=== PATIENT | male | born 1980 | race Caucasian/White ===

== ENCOUNTER 2025-03-21 08:45 | Emergency (ER) | payer BC, SELFPAY ==
[2025-03-21 08:46] VITALS: BP 146/89; PULSE 83; RESP 16; TEMP 36.7; O2SAT 97; BMI 24.7
--- NOTE | 2025-03-21 08:53 | EDS_ITS ---
HPI History of Present Illness Chief Complaint: Back Informant: patient Onset/Context/Timing Onset: Today Context: Sudden Onset Timing: Continuous Quality: Sharp Location: Right posterior thoracic area Worsened by: Deep breathing Relieved by: Nothing Narrative Narrative: Patient presents with right-sided back pain that began this morning. Patient states it was there when he woke up. Patient describes the pain as sharp. Patient states the pain is over the right posterior chest. Patient states his pain radiates into his right shoulder. Patient states it is worse with deep breathing. Patient states nothing makes it better. Patient states it hurts when he takes of breath. Patient denies any cough or palpitations. Patient admits to an episode of nausea and vomiting. Patient denies any headaches. [facility] Medical History Marijuana smoker Medical History no medical history Home Medications ?Medication ?Instructions ?Recorded ?Last Taken ?Type naproxen 500 mg tablet (Naprosyn) 500 mg PO BID PRN pa in #20 tabs 03/21/25 Unknown Rx Allergy/AdvReac Type Severity Reaction Status Date / Time No Known Allergies Allergy Verified 03/21/25 08:48 Surgical History H/O shoulder surgery Surgical History no surgical history Social History (Updated 03/21/25 @ 08:[address] Danial Phipps DO) Smoking Status: Never smoker substance use type: marijuana ROS ROS ED Constitutional Constitutional ED: Denies chills or fever(s) Eyes Eyes: Denies blurry vision or change in vision ENT ENT ED: Denies rhinorrhea or sore throat Cardiovascular Cardiovascular: Denies chest pain or palpitations Respiratory/Chest Respiratory/Chest: Reports dyspnea; Denies cough Gastrointestinal Gastrointestinal: Reports nausea and vomiting Genitourinary Genitourinary ED: Denies dysuria or hematuria Musculoskeletal Musculoskeletal: Reports back pain; Denies neck pain Integumentary Denies abscess or rash Neurologic Neurologic: Denies headache(s) or weakness Allergic/Immunologic Allergic/Immunologic ED: Denies mouth swelling or urticaria EXAM Physical Exam Const Vital Signs: 03/21/25 08:46 03/21/25 10:46 03/21/25 12:00 Temperature 98.0 F Temperature Source Oral Pulse Rate 83 78 70 Respiratory Rate 16 Blood Pressure 146/89 H 126/70 H 126/77 H Blood Pressure Mean 108 88 93 Pulse Ox 97 96 98 Oxygen Delivery Method Room Air Positive well nourished and well developed Constitutional Narrative: BMI is 24.7. General Appearance ED: well developed and NAD HEENT Reports moist mucous membranes Neck supple and no JVD Resp Effort and Inspection: pain with movement Auscultation: diminished lung sounds bilateral Cardio regular rate and regular rhythm GI non-tender and non-distended Palpation: soft Back/Spine Back/Spine Narrative: There is tenderness over the right lower posterior ribs. There is no bony crepitance or step-off. There is no subcutaneous emphysema noted. Extremity normal to inspection General Extremety ED: Negative for edema or tenderness General Extremity: Negative for edema Neuro oriented x3 and CN's II-XII intact bilaterally Sensorium / Orientation: alert Motor Exam: strength 5/5 throughout Psych mental status grossly normal MDM MDM MDM Narrative Medical decision making narrative: Differential diagnosis includes thoracic strain, pneumothorax, cardiac dysrhythmia, cardiac ischemia, pneumonia, bronchitis, aortic dissection, pulmonary embolism, dehydration, and electrolyte abnormality. EKG will be obtained to assess for cardiac dysrhythmia and cardiac ischemia. Chest x-ray will be obtained to assess for pneumonia, bronchitis, pneumothorax. CBC will be obtained to assess for leukocytosis and anemia. Basic metabolic profile will be obtained to assess for electrolyte abnormality and renal function. High- sensitivity troponin will be obtained to assess for cardiac ischemia. D-dimer will be obtained to assess for pulmonary embolism and aortic dissection. History & Record Review Additional record(s) reviewed:: Prior ED visit Lab Data Attestation: I reviewed the patient's lab results. Lab results narrative: CBC was reviewed. There is a mild leukocytosis of 17.8. The remainder is within normal limits. Basic metabolic profile was reviewed. Potassium was mildly elevated at 5.6. BUN was slightly elevated at 22 and creatinine was 1.25. There are no prior labs available for comparison. Initial high- sensitivity troponin was reviewed and was normal at 11. 2-hour repeat high- sensitivity troponin was reviewed and was 17. Repeat basic metabolic profile was reviewed. CO2 was improved to 18.1 and potassium was 4.7. Labs: Laboratory Results - last 24 hr 03/21/25 03/21/25 03/21/25 09:10 11:05 11:57 WBC 17.8 H RBC 5.17 Hgb 14.2 Hct 43.9 MCV 84.9 MCH 27.5 MCHC 32.3 RDW Std Deviation 42.0 RDW Coeff of [place] 13.6 Plt Count 288 MPV 10.7 Immature Gran % (Auto) 0.800 Neut % (Auto) 75.7 H Lymph % (Auto) 4.8 L [place] % (Auto) 6.4 Eos % (Auto) 12.1 H Baso % (Auto) 0.2 Absolute Neuts (auto) 13.4 H Absolute Lymphs (auto) 0.86 Nucleated RBC % 0 Differential Comment COMMENT D-Dimer Quant (PE/DVT) 0.40 Sodium 139 136 Potassium 5.6 H 4.7 Chloride 102 105 Carbon Dioxide 14.6 L 18.1 L Anion Gap 23 H 13 BUN 22 H 23 H Creatinine 1.25 H 0.90 Estim Creat Clear Calc 76.20 105.83 Est GFR (MDRD) Non-Af 73 108 BUN/Creatinine Ratio 17.9 25.8 H Glucose 151 H 110 H Calcium 8.7 8.4 Troponin T High Sens 11 Troponin T Hi Sens 2 Hr 17 Radiography Chest X-Ray - ED: 2 View, Read by ED Physician, Read by Radiologist and No Acute Disease Diagnostic Testing: Clinical Impression(s) from Imaging Studies Chest X-Ray 03/21/25 09:02 IMPRESSION: Lungs appear clear of acute disease. No pleural effusion or pneumothorax is noted. The cardiomediastinal silhouette is within the normal range. Minimal degenerative changes of the spine are seen. No fracture, subluxation, or paraspinous line widening is noted. No evidence of acute disease. Reading Location: [facility] [place] and lateral chest x-ray was obtained. There are 2 views. On my independent interpretation, lung marsh are clear. There is normal cardiac silhouette. Bony thorax is normal. There is no acute process noted. Radiologist also interpreted the x-ray and agrees. EKG Initial EKG: Attestation: I personally reviewed and interpreted this EKG as follows: Interpretation: Sinus Rhythm (83) and No Acute Injury Pattern Comments: EKG was obtained. On my independent interpretation, it showed a normal sinus rhythm with a rate of 83. HI interval, QRS interval, and QTc intervals were all normal. [place] was normal. There are no acute ST or T wave changes. 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 Patient is feeling better on reevaluation. Patient states his pain is worse when he moves. Patient was advised that this is most likely musculoskeletal in etiology. Patient was instructed to drink plenty of fluids. Patient was given a prescription for Naprosyn. Patient was instructed to follow-up with his primary care physician in 5 to 7 days. Patient was instructed return if worse in any way. Patient understood and was agreeable with the plan. All questions were answered. Discharge Plan Triage Chief Complaint: Back ED Provider: Danial Phipps Dx/Rx/DC Orders Clinical Impression: Strain of thoracic back region, Elevated blood pressure reading Instructions: ED Back Sprain/Strain Prescriptions: New naproxen [Naprosyn] 500 mg tablet 500 mg PO BID PRN (Reason: pain) Qty: 20 0RF Primary Care Provider: Care Physician,No Primary Referrals: Wayne Laguna MD [Med Staff - [employer] Assistant, Family Practice] - 5-7 Days Care Physician,No Primary [Primary Care Provider, Medical] Print Language: [place] Disposition Disposition: Home, Self Care
--- NOTE | 2025-03-21 09:02 | RAD_ITS ---
PROCEDURE: CHEST PA AND LATERAL 03/21/2025 REASON FOR EXAM: BACK PAIN TECHNIQUE: Procedure Code: RADCXR Modality: DX Procedure: CHEST PA AND LATERAL COMPARISON: None. RAD/Chest PA and Lateral IMPRESSION: Lungs appear clear of acute disease. No pleural effusion or pneumothorax is noted. The cardiomediastinal silhouette is within the normal range. Minimal degenerative changes of the spine are seen. No fracture, subluxation, or paraspinous line widening is noted. No evidence of acute disease. Reading Location: [place] [id number]
[2025-03-21 09:17] LABS: Hematocrit 43.9 % (40-54); Hemoglobin 14.2 g/dL (13.0-16.5); Immature Granulocytes Count 0.140 X10^3/uL (0.0-0.0); Mean Corp Hgb Conc 32.3 g/dL (32-36); Mean Corpuscular Volume 84.9 fL (80-94); Mean Platelet Vol. 10.7 fl (6.2-12.0); NRBC Flagged by Analyzer 0 % (0-5); POSITIVE DIFFERENTIAL YES; POSITIVE MORPHOLOGY YES; Platelet Count 288 K/mm3 (150-450); RBC Distribution Width CV 13.6 % (11.6-14.6); RBC Distribution Width SD 42.0 fl (35.1-43.9); Red Blood Count 5.17 M/mm3 (4.6-6.2); White Blood Count 17.8 K/mm3 (4.4-11.0)
[2025-03-21] MEDS: 0.9% Normal Saline (1000mL) 1,000 ML 1000 ML IV (09:30)
[2025-03-21 09:37] LABS: Anion Gap 23 (5-15); BUN 22 mg/dL (4-19); BUN/Creat Ratio 17.9 RATIO (10-20); Calcium,Total 8.7 mg/dL (7.6-11.0); Carbon Dioxide 14.6 mmol/L (21.0-32.0); Chloride 102 mmol/L (98-108); Estimated Creatinine Clearance 76.20 ml/min (50-250); Glucose 151 mg/dL (70-99); Potassium 5.6 mmol/L (3.3-5.1); Troponin T High Sensitivity 11 ng/L (<=22)
[2025-03-21 09:38] LABS: Differential Indicated SCAN CRITERIA MET
[2025-03-21 09:40] LABS: D-Dimer Quantitative (DVT/PE) 0.40 FEU/ug/m (0.27-0.49)
--- OUTSIDE RECORDS SUMMARY | 2025-03-21 10:31 | XMS RPT_ITS | CCD ---
Author Organization [facility] Partnership [facility] Care Team Providers Care Coating Line Worker Name Role Phone Unavailable Primary Care Provider UnavailBRYON Krishna Attending Unava FRANKLIN Zapata Attending Unavailable JOHANA LAURA Referring Unavailable JOHANA LAURA Attending Unavailable Medications Current Medications Medication Drug Class(es) Dates Sig (Normalized) Sig (Original) pantoprazole 20 mg delayed release oral tablet (4 sources) Proton Pump Inhibitor Start: 11-05-2024 End: 05-04-2025 take 1 tablet by mouth once daily before breakfast pantoprazole (Protonix) 20 MG EC tablet Take 1 tablet (20 mg) by mouth every morning (before breakfast). Do not crush, chew, or split. 90 tablet 11/05/2024 05/04/2025 Active polyethylene glycol 3350 116174 mg / potassium chloride 2970 mg / sodium bicarbonate 6740 mg / sodium chloride 5860 mg / sodium sulfate 49009 mg powder for oral solution (1 source) Osmotic Laxative Start: 11-05-2024 End: 11-06-2024 polyethylene glycol (GaviLyte-G) 236 g solution Take according to colonoscopy bowel prep instructions. 4000 mL 11/05/2024 11/06/2024 Active Completed/Discontinued Medications Medication Drug Class(es) Dates Sig (Normalized) Sig (Original) iopamidol (Isovue-370) 76 % injection 75 mL (2 sources) Start: 08-29-2024 End: 08-29-2024 take 75 mL intravenously once as needed 75 mL, IntraVENous, IMG once PRN, contrast, Starting on Tue08/29/24 at 1211, For 1 dose 1 ml ketorolac tromethamine 30 mg/ml cartridge (2 sources) Nonsteroidal Anti-inflammatory Drug, Cyclooxygenase Inhibitor Start: 08-29-2024 End: 08-29-2024 30 mg, IntraVENous, Once, On Tue08/29/24 at 0915, For 1 dose Problems Active Problems Problem Classification Problem Date Documented Da te Episodic/Chronic Abdominal pain (3 sources) Generalized abdominal pain; Translations: [Generalized abdominal pain] Onset: 5 11-05-2024 Episodic Gastrointestinal hemorrhage (3 sources) Blood-tinged feces; Translations: [Melena] Onset: 5 11-05-2024 Episodic Other gastrointestinal disorders (1 source) Abdominal bloating; Translations: [Abdominal distension (gaseous)] 11-05-2024 Episodic Other gastrointestinal disorders (2 sources) Abdominal distension (gaseous); Translations: [Abdominal distension (gaseous)] Onset: 5 Episodic Other lower respiratory disease (2 sources) Multiple nodules of lung; Translations: [Other nonspecific abnormal finding of lung field] 09-27-2024 Episodic Other nervous system disorders (2 sources) Other chronic pain; Translations: [Other chronic pain] Onset: 5 Chronic Other screening for suspected conditions (not mental disorders or infectious disease) (3 sources) Imaging of gastrointestinal tract abnormal; Translations: [Abnormal findings on diagnostic imaging of other parts of digestive tract] Onset: 5 11-05-2024 Episodic Residual codes; unclassified (1 source) H/O: gastrointestinal disease; Translations: [Personal history of other specified conditions] 11-05-2024 Episodic Residual codes; unclassified (2 sources) Personal history of other specified conditions; Translations: [Personal history of other specified conditions] Onset: 5 Episodic Sprains and strains (1 source) Sprain of anterior cruciate ligament of right knee, initial encounter; Translations: [Sprain of anterior cruciate ligament of right knee, initial encounter] Onset: 4 Episodic Past or Other Problems Problem Classification Problem Date Documented Date Episodic/Chronic Administrative/social admission (5 sources) Other problems related to medical facilities and other health care; Translations: [Other specified conditions influencing health status] Onset: 09-27-2024 08-29-2024 Episodic Noninfectious gastroenteritis (8 sources) Colitis; Translations: [Noninfective gastroenteritis and colitis, unspecified] Onset: 08-29-2024 08-29-2024 Episodic Other lower respiratory disease (2 sources) Other nonspecific abnormal finding of lung field; Translations: [Other nonspecific abnormal finding of lung field] Onset: 09-27-2024 Episodic Spondylosis; intervertebral disc disorders; other back problems (6 sources) Chronic thoracic back pain; Translations: [Pain in thoracic spine] Onset: 08-29-2024 08-29-2024 Episodic Unclassified (3 sources) Does not have primary care provider 08-29-2024 Results Test Name Value Interpretation Reference Range Facility 36on 12-25-2024 36 Multiple attempts to contact patient and has still not r/s CT Chest ordered by Dr. Fabrice Galciia. Certified letter mailed as a final attempt to assist with recommended follow up. [facility] 36on 12-17-2024 36 Attempted to contact pt so see if he got the FA paperwork or was able to sched an appt. LM to return call to navigator. [facility] 36 Patient has not read the MCM sent regarding financial assistance program. Attempt to call pt x 1. LM to call back to navigator. [facility] 36on 12-06-2024 36 Financial assistance program information mailed to patient's home address. [facility] 36on 11-30-2024 36 Canceled 12/04 appt d ue to Pt could not afford $[address] Chest[address] [facility] 37on 11-05-2024 37 --Please call office with any questions or concerns! [phone] --Schedule colonoscopy for further evaluation of the symptoms (all locations). . 06/13/25 at 8:00 am arrive at 7:[address] Dailey. Case # [id number] --A prescription for GoLytely was sent to your pharmacy. This is the bowel prep for your colonoscopy. --Obtain additional blood work and stool study for further evaluation of the symptoms. Orders given to patient. --Begin medication (Pantoprazole 20 mg daily). Do not start until after completing stool study. --Please see handout provided regarding additional information. --Follow-up with PCP, and in GI clinic in about 1 month following the above evaluation and recommendations. [facility] Office Visiton 11-05-2024 Follow-up visit [id number] Juwan Mackey 1980 M Date Provider Department Center 11/05/2024 [id number] T[facility]I [facility] G[facility] None No family history on file Level of Service:80897 [place] OFFICE/OUTPATIENT NEW MODERATE MDM 45 MINUTES Reason for Visit and Comments: New Patient [542] - Colitis Normal [facility] Progress Noteon 11-05-2024 Progress Note [facility] [place] [address] [facility] [address] Dept: [phone] Dept Loc: [phone] Visit type: New Reason for Visit: New Patient (Colitis ) Assessment and Plan Problem List Items Addressed This Visit None Visit Diagnoses Abnormal CT scan, colon - Primary Relevant Orders C-reactive protein Sedimentation rate, automated Generalized abdominal pain Relevant Orders H. pylori Stool Antigen C-reactive protein Sedimentation rate, automated History of diarrhea Relevant Orders Celiac reflex panel Bloating Relevant Orders H. pylori Stool Antigen Celiac reflex panel Hematochezia Has had stomach problems for years. Nothing worse recently except for ED which showed ?mild colitis. Thinks it might have been from food poisoning as symptoms are getting better. Usually as bloating that is postprandial. Has a history early satiety but none recently. No nausea or vomiting. Has tried eliminating processed foods with minimal relief. Has bilateral abdominal pain that radiates to the back that is post prandial. Has fluctuating BM that is loose or formed. It does not come out regularly. Has seen hematochezia when wiping. No blood in stool. Thinks it might be related to stress, as he went to [place] for vacation with fishing, and symptoms resolved. Weight is stable. Recommend colonoscopy for further evaluation. Barry ordered. Will get Celiac serology, H. Pylori stool antigen, CRP, Sed rate for further evaluation. Trial PPI. Follow up in about 6 months (around 05/07/2025) for Next scheduled follow-up. Advised patient to call office with new or worsening symptoms, questions, or concerns. Patient verbalized understanding and agreement of plan. Subjective Juwan is a 44 y.o. male who presents as a new patient. He was referred by ED regarding colitis. HPI Has had stomach problems for years. Nothing worse recently except for ED which showed ?mild colitis. Thinks it might have been from food poisoning as symptoms are getting better. Usually as bloating that is postprandial. Has a history early satiety but none recently. No nausea or vomiting. Has tried eliminating processed foods with minimal relief. Has bilateral abdominal pain that radiates to the back that is post prandial. Has fluctuating BM that is loose or formed. It does not come out regularly. Has seen hematochezia when wiping. No blood in stool. Thinks it might be related to stress, as he went to [place] for vacation with fishing, and symptoms resolved. Weight is stable. EtOH: None. Tobacco: None. NSAIDs: None. Illicit drugs: Marijuana daily. Family History of Colon Cancer: None. Prior EGD/Colonoscopy: None. Prior Abdominal Surgery: None. Review of Systems Constitutional: Negative for appetite change, chills, fatigue, fever and unexpected weight change. HENT: Negative for sore throat, trouble swallowing and voice change. Respiratory: Negative for cough, choking and shortness of breath. Cardiovascular: Negative for chest pain. Gastrointestinal: Positive for anal bleeding and diarrhea. Negative for abdominal distention, abdominal pain, blood in stool, constipation, nausea, rectal pain and vomiting. Genitourinary: Negative for difficulty urinating. Musculoskeletal: Negative for arthralgias. Skin: Negative for color change, pallor and rash. Allergic/Immunologic: Negative for environmental allergies and food allergies. Neurological: Negative for tremors and weakness. Hematological: Does not bruise/bleed easily. Psychiatric/Behavioral : Negative for confusion. Allergies[1] Current Medications[2] There are no active problems to display for this patient. Social History Tobacco Use Smoking status: Never Smokeless tobacco: Former Types: Chew Quit date: 05/16/2023 Substance Use Topics Alcohol use: Yes Alcohol/week: 1.0 standard drink of alcohol Types: 1 Shots of liquor per week Comment: [facility] Family History[3] Objective BP 123/79 Pulse 54 Temp 36.9 ?C (98.4 ?F) Ht 5' 9 (1.753 m) Wt 178 lb (80.7 kg) SpO2 97% BMI 26.29 kg/m? Physical Exam Vitals reviewed. Constitutional: General: He is not in acute distress. Appearance: Normal appearance. He is not ill-appearing. Cardiovascular: Rate and Rhythm: Normal rate and regular rhythm. Pulmonary: Effort: Pulmonary effort is normal. Breath sounds: Normal breath sounds. Abdominal: General: Bowel sounds are normal. There is no distension. Palpations: Abdomen is soft. Tenderness: There is no abdominal tenderness. There is no guarding or rebound. Neurological: General: No focal deficit present. Mental Status: He is alert and oriented to person, place, and time. Psychiatric: Mood and Affect: Mood normal. Behavior: Behavior normal. Data Reviewed and Summarized Labs: Lab Results Component Value Date WBC 7.2 (more content not included)... Normal [facility] 37on 09-27-2024 37 YOUR APPOINTMENT TOJosesito MERCEDES WAS WITH THE [facility] LUNG NODULE CLINIC, COPD CLINIC, PULMONARY AND SLEEP MEDICINE OFFICE. PLEASE CALL OUR OFFICE AT [phone] IF YOU HAVE NOT RECEIVED YOUR TEST RESULTS 7 DAYS AFTER TESTING IS COMPLETED. PLEASE REMEMBER TO REQUEST REFILLS AT YOUR OFFICE VISITS. PHONE/FAX REQUESTS REQUIRE 48-72 HOURS FOR RESPONSE. A FRIENDLY REMINDER COPAYS ARE DUE AT TIME OF SERVICE. THANK YOU. Our Patients Are Important! We want to improve and you can help. After your visit we want you to feel: Listened to, Respected and have your health care explained. You may receive a survey asking you about your visit. Please complete the survey. We will use your feedback to make improvements. COVID-19 VACCINATION INFORMATION: [facility] [phone] [email or web address] /VACCINE [facility] Central Scheduling [phone] [facility] Sleep Scheduling [phone] [facility] Office Visiton 09-27-2024 Follow-up visit [id number] Jwuan Mackey 1980 M Date Provider Department Center 09/27/2024 [id number] S, Kannan*[facility] PUL None No family history on file Level of Service:85905 [place] OFFICE/OUTPATIENT NEW LOW MDM 30 MINUTES Reason for Visit and Comments: New Patient [542] Lung Nodule [519] Normal [facility] Progress Noteon 09-27-2024 Progress Note MG, Pulmonary Critical Care Medicine [address] [place] [id number] Pulmonary Patient Visit - New 09/27/2024 Referring Physician: No primary care provider on file. Reason for Referral: Pulmonary nodules History of Present Illness Juwan Mackey is a 44 y.o. M with no significant PMH who presented for incidentally found pulmonary nodules. Stated that he recently developed abdominal and back pain prompting evaluation in the ER. Found on CT with mild colitis and multiple pulmonary nodules. Pending appointment with GI. Does not believe that he has ever completed prior chest imaging for comparison. Denied any respiratory symptoms including SOB, cough, hemoptysis, chest pain, unintentional weight loss, night sweats. Smoking history: Prior chewing tobacco quit 2022. Denied smoking. Marijuana x 20 years. 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 Sig Documenting Provider Last Dose Status No Medications to Display Social History Social History Tobacco Use Smoking status: Never Smokeless tobacco: Former Types: Chew Quit date: 05/16/2023 Substance Use Topics Alcohol use: Yes Alcohol/week: 1.0 standard drink of alcohol Types: 1 Shots of liquor per week Comment: [facility] FamilyHistory Family History[4] Review of Systems Review of Systems Constitutional: Negative. Respiratory: Negative. Cardiovascular: Negative. Gastrointestinal: Positive for abdominal pain and diarrhea. Musculoskeletal: Positive for back pain. Physical Exam Vitals: 09/27/24 0832 BP: 122/78 BP Location: Left arm Patient Position: Sitting BP Cuff Size: Adult Pulse: 73 Resp: 14 Temp: (!) 34.6 ?C (94.3 ?F) TempSrc: Temporal SpO2: 98% Weight: 177 lb (80.3 kg) Height: 5' 9.02 (1.753 m) Physical Exam Vitals reviewed. Constitutional: General: He is not in acute distress. Appearance: Normal appearance. HENT: Head: Normocephalic and atraumatic. Mouth/Throat: Mouth: Mucous membranes are moist. Pharynx: No oropharyngeal exudate. Eyes: General: No scleral icterus. Extraocular Movements: Extraocular movements intact. Cardiovascular: Rate and Rhythm: Normal rate and regular rhythm. Pulmonary: Effort: Pulmonary effort is normal. No respiratory distress. Breath sounds: Normal breath sounds. No wheezing or rales. Musculoskeletal: General: No swelling. Skin: General: Skin is warm and dry. Neurological: Mental Status: He is alert and oriented to person, place, and time. Psychiatric: Mood and Affect: Mood normal. Labs: Available studies were reviewed Radiology: Personally reviewed Chest CT 08/29/24: Impression:No large central PE. Consider VQ scan for persistent symptoms. Pulmonary nodules as described above, up to approximately 8 mm.Three month follow-up CT can be considered. See below for published guidelines. PFT's: Assessment/plan: Multiple pulmonary nodules Prior chewing tobacco Marijuana use -Chest imaging reviewed with patient including multiple pulmonary nodules and prominent right hilar lymph node. Reviewed possible etiologies for nodules including infection, inflammation, malignancy. Discussed options for further evaluation. Per Fleischner guidelines will repeat chest CT in 3 months, due on November. - Referral placed for PCP Follow up: After CT to review results Please seek immediate medical attention for any worsening or worrying new symptoms. Patient education, benefits, risks, and precautions provided. Management plan was discussed in detail and in agreement. All questions or concerns answered to satisfaction and understood. Bryon Magaña DO 9:01 AM 09/27/24 Pulmonary and Critical Care Medicine [1] Past Medical History: Diagnosis Date Pneumonia two weeks old [2] Past Surgical History: Procedure Laterality Date SHOULDER SURGERY [3] No Known Allergies [4] No family history on file. Normal [facility] 36on 09-03-2024 36 Pt appeared on [facility] e search for Lung nodules after 08/29/24 CTA Chest revealed the following: LUNGS:No definite findings to explain the patient's symptoms. Left upper lobe nodule 8.5 mm x 5.9 mm. Middle lobe nodule 6.4 mm. Left basilar nodule 8 mm. A few small nodules along the fissure. Spine: No convincing acute or occult process. Three month follow-up CT can be considered. Referral: none OSF imaging: none Pt is documented as: never smoker Additional Risk Factors: none Consider additional imaging based on risk factors/Fleischner guidelines. Patient does not have a PCP listed in chart and no previous encounters. Normal [facility] CBC W Auto Differential pane l (Bld)on 08-29-2024 Basophils (Bld) [#/Vol] 0 10*3/uL 0.0 - 0.2 10*3/uL [facility] Basophils/100 WBC (Bld) 0.3 % 0.0 - 2.0 % [facility] Eosinophils (Bld) [#/Vol] 0.1 10*3/uL 0.0 - 0.5 10*3/uL [facility] Eosinophils/100 WBC (Bld) 0.7 % 0.0 - 6.0 % [facility] Erythrocyte distribution width (RBC) [Ratio] 13.2 % 11.5 - 15.0 % [facility] Hematocrit (Bld) [Volume fraction] 45.3 % 40.0 - 52.0 % [facility] Hemoglobin (Bld) [Mass/Vol] 14.6 g/dL 13.0 - 18.0 g/dL [facility] Immature granulocytes (Bld) [#/Vol] 0 10*3/uL NINF - 0.1 10*3/uL [facility] Immature granulocytes/100 WBC (Bld) 0.3 % 0.0 - 2.0 % [facility] Interpretation and review of laboratory results Normal [facility] Lymphocytes (Bld) [#/Vol] 1.4 10*3/uL 1.0 - 4.3 10*3/uL [facility] Lymphocytes/100 WBC (Bld) 19.1 % 15.0 - 45.0 % [facility] MCH (RBC) [Entitic mass] 27.1 pg 26.0 - 34.0 pg [facility] MCHC (RBC) [Mass/Vol] 32.2 % 30.5 - 36.0 % [facility] MCV (RBC) [Entitic vol] 84 fL 77.0 - 99.0 fL [facility] Monocytes (Bld) [#/Vol] 0.8 10*3/uL 0.0 - 0.9 10*3/uL [facility] Monocytes/100 WBC (Bld) 10.5 % 5.0 - 13.0 % [facility] Neutrophils (Bld) [#/Vol] 5 10*3/uL 1.8 - 7.5 10*3/uL [facility] Neutrophils/100 WBC (Bld) 69.1 % 38.0 - 82.0 % [facility] Nucleated RBC/100 WBC (Bld) [Ratio] 0 % [facility] Platelet mean volume (Bld) [Entitic vol] 10.7 fL 9.0 - 12.7 fL [facility] Platelets (Bld) [#/Vol] 270 10*3/uL 140 - 440 10*3/uL [facility] RBC (Bld) [#/Vol] 5.39 10*6/uL 4.40 - 5.9 0 10*6/uL [facility] WBC (Bld) [#/Vol] 7.2 10*3/uL 3.6 - 10.7 10*3/uL [facility] CBC WITH AUTO DIFFERENTIALon 08-29-2024 Basophils (Bld) [#/Vol] 0.0 10*3/uL Normal 0.0-0.2 [facility] Comment on above: Performed By: #### L [id number] ####Child Support Investigator: CHARLES MATHIAS ([id number])[facility])[address] [place] [address] Basophils/100 WBC (Bld) 0.3 % Normal 0.0-2.0 [facility] Comment on above: Performed By: #### L [id number] ####Child Support Investigator: CHARLES MATHIAS ([id number])[facility])[address] [place] [address] Eosinophils (Bld) [#/Vol] 0.1 10*3/uL Normal 0.0-0.5 [facility] Comment on above: Performed By: #### L [id number] ####Child Support Investigator: CHARLES MATHIAS ([id number])[facility])[address] [place] [address] Eosinophils/100 WBC (Bld) 0.7 % Normal 0.0-6.0 [facility] Comment on above: Performed By: #### L [id number] ####Child Support Investigator: CHARLES MATHIAS ([id number])[address] Erythrocyte distribution width (RBC) [Ratio] 13.2 % Normal 11.5-15.0 [facility] Comment on above: Performed By: #### L [id number] ####Child Support Investigator: CHARLES [id number])[facility])[address] [place] [address] Hematocrit (Bld) [Volume fraction] 45.3 % Normal 40.0-52.0 [facility] Comment on above: Performed By: #### L [id number] ####Child Support Investigator: CHARLES MATHIAS ([id number])[facility])[address] [place] [address] Hemoglobin (Bld) [Mass/Vol] 14.6 g/dL Normal 13.0-18.0 [facility] Comment on above: Performed By: #### L [id number] ####Child Support Investigator: CHARLES MATHIAS ([id number])[facility])[address] [place] [address] IMMATURE GRANS % 0.3 % Normal 0.0-2.0 [facility] Comment on above: Performed By: #### L [id number] ####Child Support Investigator: CHARLES MATHIAS ([id number])[facility])[address] [place] [address] IMMATURE GRANS ABSOLUTE 0.0 10*3/uL Normal <0.1 [facility] Comment on above: Performed By: #### L [id number] ####Child Support Investigator: CHARLES MATHIAS ([id number])[facility])[address] [place] [address] Lymphocytes (Bld) [#/Vol] 1.4 10*3/uL Normal 1.0-4.3 [facility] Comment on above: Performed By: #### L [id number] ####Child Support Investigator: CHARLES MATHIAS ([id number])[facility])[address] [place] [address] Lymphocytes/100 WBC (Bld) 19.1 % Normal 15.0-45.0 [facility] Comment on above: Performed By: #### L [id number] ####Child Support Investigator: CHARLES MATHIAS ([id number])[facility])[address] [place] [address] MCH (RBC) [Entitic mass] 27.1 pg Normal 26.0-34.0 [facility] Comment on above: Performed By: #### L [id number] ####Child Support Investigator: CHARLES MATHIAS ([id number])[facility])[address] [place] [address] MCHC 32.2 % Normal 30.5-36.0 [facility] Comment on above: Performed By: #### L [id number] ####Child Support Investigator: CHARLES MATHIAS ([id number])[facility])[address] [place] [address] MCV (RBC) [Entitic vol] 84.0 fL Normal 77.0-99.0 [facility] Comment on above: Performed By: #### L [id number] ####Child Support Investigator: CHARLES MATHIAS ([id number])[facility])[address] [place] [address] Monocytes (Bld) [#/Vol] 0.8 10*3/uL Normal 0.0-0.9 [facility] Comment on above: Performed By: #### L [id number] ####Child Support Investigator: CHARLES MATHIAS ([id number])[facility])[address] [place] [address] Monocytes/100 WBC (Bld) 10.5 % Normal 5.0-13.0 [facility] Comment on above: Performed By: #### L [id number] ####Child Support Investigator: CHARLES MATHIAS ([id number])[facility])[address] [place] [address] NEUTROPHILS ABSOLUTE 5.0 10*3/uL Normal 1.8-7.5 [facility] Comment on above: Performed By: #### L [id number] ####Child Support Investigator: CHARLES MATHIAS ([id number])[address] Neutrophils/100 WBC (Bld) 69.1 % Normal 38.0-82.0 [facility] Comment on above: Performed By: #### L [id number] ####Child Support Investigator: CHARLES MATHIAS ([id number])[facility])[address] [place] [address] NRBC 0.0 /100 WBCs Normal 0.0-2.0 [facility] Comment on above: Performed By: #### L [id number] ####Child Support Investigator: CHARLES MATHIAS ([id number])[facility] ([facility])[address] [place] [address] Platelet mean volume (Bld) [Entitic vol] 10.7 fL Normal 9.0-12.7 [facility] Comment on above: Performed By: #### L [id number] ####Child Support Investigator: CHARLES MAHTIAS ([id number])[facility] ([facility])[address] [place] [address] Platelets (Bld) [#/Vol] 270 10*3/uL Normal 140-440 [facility] Comment on above: Performed By: #### L [id number] ####Child Support Investigator: CHARLES MATHIAS ([phone])[facility] ([facility])[address] [place] [address] RBC (Bld) [#/Vol] 5.39 10*6/uL Normal 4.40-5.90 [facility] Comment on above: Performed By: #### L [id number] ####Child Support Investigator: CHARLES MATHIAS ([phone])[facility])[address] [place] [address] WBC (Bld) [#/Vol] 7.2 10*3/uL Normal 3.6-10.7 [facility] Comment on above: Performed By: #### L [id number] ####Child Support Investigator: CHARLES MATHIAS ([id number])[facility])[address] [place] [address] COMPREHENSIVE METABOLIC PANE Brett 08-29-2024 Albumin [Mass/Vol] 4.5 g/dL Normal 3.5-5.0 [facility] Comment on above: Performed By: #### L [id number], LAB99 #### Child Support Investigator: CHARLES MATHIAS ([id number]) [facility] ([facility]) [address] [place] [address] [place] ALP [Catalytic activity/Vol] 42 U/L Normal 40-150 [facility] Comment on above: Performed By: #### L [id number], LAB99 #### Child Support Investigator: CHARLES MATHIAS ([id number]) [facility] ([facility]) [address] [place] [address] [place] ALT [Catalytic activity/Vol] 34 U/L Normal <40 [facility] Comment on above: Performed By: #### L [id number], LAB99 #### Child Support Investigator: CHARLES MATHIAS ([id number]) [facility] ([facility]) [address] [place] [address] Anion gap [Moles/Vol] 5 mmol/L Normal 3-13 [facility] Comment on above: Performed By: #### L [id number], LAB99 #### Child Support Investigator: CHARLES MATHIAS ([id number]) [facility] ([facility]) [address] [place] [address] [place] AST [Catalytic activity/Vol] 27 U/L Normal <34 [facility] Comment on above: Performed By: #### L [id number], LAB99 #### Child Support Investigator: CHARLES MATHIAS ([id number]) [facility] ([facility]) [address] [place] [address] [place] Bilirubin [Mass/Vol] 0.7 mg/dL Normal <1.2 [facility] Comment on above: Performed By: #### L AB17, LAB99 #### Child Support Investigator: CHARLES MATHIAS ([id number]) [facility] ([facility]) [address] [place] [address] [place] Calcium [Mass/Vol] 9.9 mg/dL Normal 8.4-10.2 [facility] Comment on above: Performed By: #### L AB17, LAB99 #### Child Support Investigator: CHARLES MATHIAS ([id number]) [facility] ([facility]) [address] [place] [address] [place] Chloride [Moles/Vol] 107 mmol/L Normal 98-107 [facility] Comment on above: Performed By: #### L AB17, LAB99 #### Child Support Investigator: CHARLES MATHIAS ([id number]) [facility]) [address] [place] [address] CO2 [Moles/Vol] 26 mmol/L Normal 22-29 [facility] Comment on above: Performed By: #### L AB17, LAB99 #### Child Support Investigator: CHARLES MATHIAS ([phone]) [facility]) [address] [place] [address] Creatinine [Mass/Vol] 1.04 mg/dL Normal 0.72-1.25 [facility] Comment on above: Performed By: #### L AB17, LAB99 #### Child Support Investigator: CHARLES MATHIAS ([phone]) [facility]) [address] [place] [address] GLOMERULAR FILTRATION RATE ML/MIN/1.73 SQ M.PREDICTED >90.0 Normal >60.0 [facility] Comment on above: Result Comment: Calc ulation based on the Chronic Kidney Disease Epidemiology Collaboration (CKD-EPI) equation refit without adjustment for race Performed By: #### L AB17, LAB99 #### Child Support Investigator: CHARLES MATHIAS ([id number]) [facility] ([facility]) [address] [place] [address] [place] Glucose [Mass/Vol] 97 mg/dL Normal 74-100 [facility] Comment on above: Performed By: #### L AB17, LAB99 #### Child Support Investigator: CHARLES MATHIAS ([phone]) [facility]) [address] [place] [address] [place] Potassium [Moles/Vol] 5.2 mmol/L High 3.5-5.1 [facility] Comment on above: Result Comment: Plas ma potassium values may be up to 0.5 mmol/L lower than serum values. Performed By: #### L AB17, LAB99 #### Child Support Investigator: CHARLES MATHIAS ([id number]) [facility] ([facility]) [address] [place] [address] Protein [Mass/Vol] 7.6 g/dL Normal 6.4-8.3 [facility] Comment on above: Performed By: #### L AB17, LAB99 #### Child Support Investigator: CHARLES MATHIAS ([id number]) [facility]) [address] [place] [address] Sodium [Moles/Vol] 138 mmol/L Normal 136-145 [facility] Comment on above: Performed By: #### L AB17, LAB99 #### Child Support Investigator: CHARLES MATHIAS ([phone]) [facility]) [address] [place] [address] Urea nitrogen [Mass/Vol] 17 mg/dL Normal 8-21 [facility] Comment on above: Performed By: #### L AB17, LAB99 #### Child Support Investigator: CHARLES MATHIAS ([id number]) [facility]) [address] [place] [address] CT ABDOMEN PELVIS W CONTRAST on 08-29-2024 CT ABDOMEN PELVIS W CONTRAST [facility] 1980 [id number] Exam Date/Time: 08/29/2024 12:11 Procedure: CT ABDOMEN PELVIS W CONTRAST Ordering Provider: LAURA YASMIN Reason For Exam: Abdominal pain, acute, nonlocalized EXAM: CT Abdomen and Pelvis With Intravenous Contrast CLINICAL INDICATION: Abdominal pain, acute, nonlocalized. Flank pain. Left lower quadrant pain. TECHNIQUE: Axial computed tomography images of the abdomen and pelvis with intravenous contrast. This CT exam was performed using one or more of the following dose reduction techniques: automated exposure control, adjustment of the mA and/or kV according to patient size, and/or use of iterative reconstruction technique. COMPARISON: CTA chest on the same date FINDINGS: LUNG BASES: Chest/lung findings are dictated separately. No consolidation. ABDOMEN: LIVER: Unremarkable. No mass. GALLBLADDER AND BILE DUCTS: Unremarkable. No calcified stones. No ductal dilation. PANCREAS: Unremarkable. No mass. No ductal dilation. SPLEEN: Unremarkable. No splenomegaly. ADRENALS: Unremarkable. No mass. KIDNEYS AND URETERS: Unremarkable. No solid mass. No hydronephrosis. STOMACH AND BOWEL: There is question of very mild circumferential wall thickening of the distal descending colon and the proximal sigmoid colon. No bowel obstruction. No bowel wall pneumatosis. PELVIS: APPENDIX: Normal appendix. BLADDER: Unremarkable. No mass. REPRODUCTIVE: Unremarkable as visualized. ABDOMEN and PELVIS: INTRAPERITONEAL SPACE: Unremarkable. No free air. No significant fluid collection. BONES/JOINTS: Minimal bilateral hip joint DJD. Mild degenerative change of the pubic symphysis. No acute fracture. SOFT TISSUES: Tiny fat-containing umbilical hernia. VASCULATURE: Unremarkable. No abdominal aortic aneurysm. LYMPH NODES: Unremarkable. No enlarged lymph nodes. IMPRESSION: Question of mild distal colitis. Report Dictated on Electronically Signed By: Miracle Dougherty MD Electronically Signed Date/Time: 08/29/2024 12:45 PM EDT Abdominal pain, acute, nonlocalized, Flank pain, kidney stone suspected, LLQ abdominal pain Pulmonary embolism (PE) suspected, high prob Normal [facility] CT Abdomen and Pelvis W cont rast Zachery 08-29-2024 Question of mild distal colitis. Report Dictated on Electronically Signed By: Miracle Dougherty MD Electronically Signed Date/Time: 08/29/2024 12:45 PM EDT [facility] Patient Name: JUWAN MACKEY [facility] 1980 [id number] Exam Date/Time: 08/29/2024 12:11 Procedure: CT ABDOMEN PELVIS W CONTRAST Ordering Provider: LAURA YASMIN Reason For Exam: Abdominal pain, acute, nonlocalized EXAM: CT Abdomen and Pelvis With Intravenous Contrast CLINICAL INDICATION: Abdominal pain, acute, nonlocalized. Flank pain. Left lower quadrant pain. TECHNIQUE: Axial computed tomography images of the abdomen and pelvis with intravenous contrast. This CT exam was performed using one or more of the following dose reduction techniques: automated exposure control, adjustment of the mA and/or kV according to patient size, and/or use of iterative reconstruction technique. COMPARISON: CTA chest on the same date FINDINGS: LUNG BASES: Chest/lung findings are dictated separately. No consolidation. ABDOMEN: LIVER: Unremarkable. No mass. GALLBLADDER AND BILE DUCTS: Unremarkable. No calcified stones. No ductal dilation. PANCREAS: Unremarkable. No mass. No ductal dilation. SPLEEN: Unremarkable. No splenomegaly. ADRENALS: Unremarkable. No mass. KIDNEYS AND URETERS: Unremarkable. No solid mass. No hydronephrosis. STOMACH AND BOWEL: There is question of very mild circumferential wall thickening of the distal descending colon and the proximal sigmoid colon. No bowel obstruction. No bowel wall pneumatosis. PELVIS: APPENDIX: Normal appendix. BLADDER: Unremarkable. No mass. REPRODUCTIVE: Unremarkable as visualized. ABDOMEN and PELVIS: INTRAPERITONEAL SPACE: Unremarkable. No free air. No significant fluid collection. BONES/JOINTS: Minimal bilateral hip joint DJD. Mild degenerative change of the pubic symphysis. No acute fracture. SOFT TISSUES: Tiny fat-containing umbilical hernia. VASCULATURE: Unremarkable. No abdominal aortic aneurysm. LYMPH NODES: Unremarkable. No enlarged lymph nodes. [facility] Miracle Dougherty M D - 08/29/2024 Patient Name: JUWAN MACKEY [facility] 1980 [id number] Exam Date/Time: 08/29/2024 12:11 Procedure: CT ABDOMEN PELVIS W CONTRAST Ordering Provider: LAURA YASMIN Reason For Exam: Abdominal pain, acute, nonlocalized EXAM: CT Abdomen and Pelvis With Intravenous Contrast CLINICAL INDICATION: Abdominal pain, acute, nonlocalized. Flank pain. Left lower quadrant pain. TECHNIQUE: Axial computed tomography images of the abdomen and pelvis with intravenous contrast. This CT exam was performed using one or more of the following dose reduction techniques: automated exposure control, adjustment of the mA and/or kV according to patient size, and/or use of iterative reconstruction technique. COMPARISON: CTA chest on the same date FINDINGS: LUNG BASES: Chest/lung findings are dictated separately. No consolidation. ABDOMEN: LIVER: Unremarkable. No mass. GALLBLADDER AND BILE DUCTS: Unremarkable. No calcified stones. No ductal dilation. PANCREAS: Unremarkable. No mass. No ductal dilation. SPLEEN: Unremarkable. No splenomegaly. ADRENALS: Unremarkable. No mass. KIDNEYS AND URETERS: Unremarkable. No solid mass. No hydronephrosis. STOMACH AND BOWEL: There is question of very mild circumferential wall thickening of the distal descending colon and the proximal sigmoid colon. No bowel obstruction. No bowel wall pneumatosis. PELVIS: APPENDIX: Normal appendix. BLADDER: Unremarkable. No mass. REPRODUCTIVE: Unremarkable as visualized. ABDOMEN and PELVIS: INTRAPERITONEAL SPACE: Unremarkable. No free air. No significant fluid collection. BONES/JOINTS: Minimal bilateral hip joint DJD. Mild degenerative change of the pubic symphysis. No acute fracture. SOFT TISSUES: Tiny fat-containing umbilical hernia. VASCULATURE: Unremarkable. No abdominal aortic aneurysm. LYMPH NODES: Unremarkable. No enlarged lymph nodes. IMPRESSION: Question of mild distal colitis. Report Dictated on Electronically Signed By: Miracle Dougherty MD Electronically Signed Date/Time: 08/29/2024 12:[address] [facility] [address] Abdomen and Pelvis W cont rast IVOrdered By: Miracle Dougherty on 08-29-2024 [facility] Work Phone: CT CHEST ANGIOGRAM W AND/OR WO IV CONTRASTon 08-29-2024 CT CHEST ANGIOGRAM W AND/OR WO IV CONTRAST Patient Name: JUWAN MACKEY [facility] 1980 [id number] Exam Date/Time: 08/29/2024 12:11 Procedure: CT CHEST ANGIOGRAM W AND/OR WO IV CONTRAST Ordering Provider: LAURA YASMIN Reason For Exam: Pulmonary embolism (PE) suspected, high prob History: Chest discomfort. Comparison: None Findings: Dose reduction was employed with automated exposure control. Enhanced imaging of the chest was performed with 1 mm slices from neck to upper abdomen. 75 cc isovue 370 utilized. Additional images: 3-D imaging created and reviewed on independent platform for better detection of pathology. Airway:Grossly patent. Mediastinum and great vessels: No large central PE visualized. No significant coronary artery calcification. .Prominent right hilar node 1.5 cm. Respiratory motion limits evaluation of more peripheral vascular structures and parenchyma. LUNGS:No definite findings to explain the patient's symptoms. Left upper lobe nodule 8.5 mm x 5.9 mm. Middle lobe nodule 6.4 mm. Left basilar nodule 8 mm. A few small nodules along the fissure. Spine: No convincing acute or occult process.. Upper abdomen: No convincing evidence of acute process within limits of the study.. IMPRESSION: Impression:No large central PE. Consider VQ scan for persistent symptoms. Pulmonary nodules as described above, up to approximately 8 mm.Three month follow-up CT can be considered. See below for published guidelines. Comment: Please note this report has been produced using speech recognition software and may contain errors related to that system including errors in grammar, punctuation, and spelling as well as words and phrases that may be inappropriate. If there are any questions or concerns please feel free to contact the dictating provider for clarification 2017 - UPDATED [employer] GUIDELINES FOR MANAGEMENT OF SMALL PULMONARY NODULES DETECTED ON CT Note: Recommendations do not apply for lung cancer screening, patients with immunosuppression or with known cancer. Dimensions are average of long and short axis rounded to the millimeter SOLITARY NODULE: LOW RISK PATIENT <6mm - No follow up 6-8mm - 6-12 months, then consider 18-24 months >8mm - PET/CT, Bx or followup in 3 months SOLITARY NODULE: HIGH RISK PATIENT <6mm - Optional 6-12 months (suspicious morphology or upper lobe) 6-8mm - 6-12 months, then 18-24 months >8mm - PET/CT, Bx or followup in 3 months MULTIPLE NODULES: LOW RISK PATIENT (Use most suspicious nodule to manage guidelines) All <6mm - No follow up Any >6mm - 3-6 months, then consider 18-24 months MULTIPLE NODULES: HIGH RISK PATIENT (Use most suspicious nodule to manage guidelines) All <6mm - No follow up Any >6mm - 3-6 months, then 18-24 months SUBSOLID NODULE: SINGLE GROUND GLASS OPACITY <6mm - No follow up 6mm or greater - 6-12 months, then every 2 years until 5 years SUBSOLID NODULE: PART SOLID <6mm - No follow up 6mm or greater - 3-6 months, then if solid component <6mm and unchanged every year until 5 years MULTIPLE SUBSOLID NODULES: All <6mm - 3-6 months, then if stable 24 and 48 months 6mm or greater - 3-6 months, subsequent management based upon most suspicious nodule Report Dictated on Electronically Signed By: Wayne Ayala MD Electronically Signed Date/Time: 08/29/2024 12:31 PM EDT Abdominal pain, acute, nonlocalized, Flank pain, kidney stone suspected, LLQ abdominal pain Pulmonary embolism (PE) suspected, high prob Normal [facility] CTA Chest vessels WO and Theresa almonterast Zachery 08-29-2024 Impression:No large central PE. Consider VQ scan for persistent symptoms. Pulmonary nodules as described above, up to approximately 8 mm.Three month follow-up CT can be considered. See below for published guidelines. Comment: Please note this report has been produced using speech recognition software and may contain errors related to that system including errors in grammar, punctuation, and spelling as well as words and phrases that may be inappropriate. If there are any questions or concerns please feel free to contact the dictating provider for clarification 2017 - UPDATED [employer] GUID[employer]INES FOR MANAGEMENT OF SMALL PULMONARY NODULES DETECTED ON CT Note: Recommendations do not apply for lung cancer screening, patients with immunosuppression or with known cancer. Dimensions are average of long and short axis rounded to the millimeter SOLITARY NODULE: LOW RISK PATIENT <6mm - No follow up 6-8mm - 6-12 months, then consider 18-24 months >8mm - PET/CT, Bx or followup in 3 months SOLITARY NODULE: HIGH RISK PATIENT <6mm - Optional 6-12 months (suspicious morphology or upper lobe) 6-8mm - 6-12 months, then 18-24 months >8mm - PET/CT, Bx or followup in 3 months MULTIPLE NODULES: LOW RISK PATIENT (Use most suspicious nodule to manage guidelines) All <6mm - No follow up Any >6mm - 3-6 months, then consider 18-24 months MULTIPLE NODULES: HIGH RISK PATIENT (Use most suspicious nodule to manage guidelines) All <6mm - No follow up Any >6mm - 3-6 months, then 18-24 months SUBSOLID NODULE: SINGLE GROUND GLASS OPACITY <6mm - No follow up 6mm or greater - 6-12 months, then every 2 years until 5 years SUBSOLID NODULE: PART SOLID <6mm - No follow up 6mm or greater - 3-6 months, then if solid component <6mm and unchanged every year until 5 years MULTIPLE SUBSOLID NODULES: All <6mm - 3-6 months, then if stable 24 and 48 months 6mm or greater - 3-6 months, subsequent management based upon most suspicious nodule Report Dictated on Electronically Signed By: Wayne Ayala MD Electronically Signed Date/Time: 08/29/2024 12:31 PM EDT [facility] Patient Name: JUWAN MACKEY : 1980 Exam Date/Time: 08/29/2024 12:11 Procedure: CT CHEST ANGIOGRAM W AND/OR WO IV CONTRAST Ordering Provider: LAURA YASMIN Reason For Exam: Pulmonary embolism (PE) suspected, high prob History: Chest discomfort. Comparison: None Findings: Dose reduction was employed with automated exposure control. Enhanced imaging of the chest was performed with 1 mm slices from neck to upper abdomen. 75 cc isovue 370 utilized. Additional images: 3-D imaging created and reviewed on independent platform for better detection of pathology. Airway:Grossly patent. Mediastinum and great vessels: No large central PE visualized. No significant coronary artery calcification. .Prominent right hilar node 1.5 cm. Respiratory motion limits evaluation of more peripheral vascular structures and parenchyma. LUNGS:No definite findings to explain the patient's symptoms. Left upper lobe nodule 8.5 mm x 5.9 mm. Middle lobe nodule 6.4 mm. Left basilar nodule 8 mm. A few small nodules along the fissure. Spine: No convincing acute or occult process.. Upper abdomen: No convincing evidence of acute process within limits of the study.. [facility] Wayne Ayala MD - 08/29/2024 Patient Name: JUWAN MACKEY : 1980 Exam Date/Time: 08/29/2024 12:11 Procedure: CT CHEST ANGIOGRAM W AND/OR WO IV CONTRAST Ordering Provider: LAURA YASMIN Reason For Exam: Pulmonary embolism (PE) suspected, high prob History: Chest discomfort. Comparison: None Findings: Dose reduction was employed with automated exposure control. Enhanced imaging of the chest was performed with 1 mm slices from neck to upper abdomen. 75 cc isovue 370 utilized. Additional images: 3-D imaging created and reviewed on independent platform for better detection of pathology. Airway:Grossly patent. Mediastinum and great vessels: No large central PE visualized. No significant coronary artery calcification. .Prominent right hilar node 1.5 cm. Respiratory motion limits evaluation of more peripheral vascular structures and parenchyma. LUNGS:No definite findings to explain the patient's symptoms. Left upper lobe nodule 8.5 mm x 5.9 mm. Middle lobe nodule 6.4 mm. Left basilar nodule 8 mm. A few small nodules along the fissure. Spine: No convincing acute or occult process.. Upper abdomen: No convincing evidence of acute process within limits of the study.. IMPRESSION: Impression:No large central PE. Consider VQ scan for persistent symptoms. Pulmonary nodules as described above, up to approximately 8 mm.Three month follow-up CT can be considered. See below for published guidelines. Comment: Please note this report has been produced using speech recognition software and may contain errors related to that system including errors in grammar, punctuation, and spelling as well as words and phrases that may be inappropriate. If there are any questions or concerns please feel free to contact the dictating provider for clarification 2017 - UPDATED [employer] GUIDELINES FOR MANAGEMENT OF SMALL PULMONARY NODULES DETECTED ON CT Note: Recommendations do not apply for lung cancer screening, patients with immunosuppression or with known cancer. Dimensions are average of long and short axis rounded to the millimeter SOLITARY NODULE: LOW RISK PATIENT <6mm - No follow up 6-8mm - 6-12 months, then consider 18-24 months >8mm - PET/CT, Bx or followup in 3 months SOLITARY NODULE: HIGH RISK PATIENT <6mm - Optional 6-12 months (suspicious morphology or upper lobe) 6-8mm - 6-12 months, then 18-24 months >8mm - PET/CT, Bx or followup in 3 months MULTIPLE NODULES: LOW RISK PATIENT (Use most suspicious nodule to manage guidelines) All <6mm - No follow up Any >6mm - 3-6 months, then consider 18-24 months MULTIPLE NODULES: HIGH RISK PATIENT (Use most suspicious nodule to manage guidelines) All <6mm - No follow up Any >6mm - 3-6 months, then 18-24 months SUBSOLID NODULE: SINGLE GROUND GLASS OPACITY <6mm - No follow up 6mm or greater - 6-12 months, then every 2 years until 5 years SUBSOLID NODULE: PART SOLID <6mm - No follow up 6mm or greater - 3-6 months, then if solid component <6mm and unchanged every year until 5 years MULTIPLE SUBSOLID NODULES: All <6mm - 3-6 months, then if stable 24 and 48 months 6mm or greater - 3-6 months, subsequent management based upon most suspicious nodule Report Dictated on Electronically Signed By: Wayne Ayala MD Electronically Signed Date/Time: 08/29/2024 12:31 PM EDT [facility] CTA Chest vessels WO and W c ontrast IVOrdered By: Wayne Ayala on 08-29-2024 [facility] [employer] Work Phone: Comprehensive metabolic 1998 panelon 08-29-2024 Albumin [Mass/Vol] 4.5 g/dL 3.5 - 5.0 g/dL [facility] ALP [Catalytic activity/Vol] 42 U/L 40 - 150 U/L [facility] ALT [Catalytic activity/Vol] 34 U[facility]L [facility]L [facility] Anion gap [Moles/Vol] 5 mmol/L 3 - 13 mmol/L [facility] AST [Catalytic activity/Vol] 27 U/L [facility] - 34 U/L [facility] Bilirubin [Mass/Vol] 0.7 mg/dL [facility] - 1.2 mg/dL [facility] Calcium [Mass/Vol] 9.9 mg/dL 8.4 - 10. 2 mg/dL [facility] Chloride [Moles/Vol] 107 mmol/L 98 - 107 mmol/L [facility] CO2 [Moles/Vol] 26 mmol/L 22 - 29 mmol/L [facility] Creatinine [Mass/Vol] 1.04 mg/dL 0.72 - 1.25 mg/dL [facility] GFR/1.73 sq M.predicted (S/P/Bld) [Vol rate/Area] - PINF [facility] Comment on above: Calculation based on the Chronic Kidney Disease Epidemiology Collaboration (CKD-EPI) equation refit without adjustment for race Glucose [Mass/Vol] 97 mg/dL 74 - 100 mg/dL [facility] Interpretation and review of laboratory results Abnormal [facility] Potassium [Moles/Vol] 5.2 mmol/L High 3.5 - 5.1 mmol/L [facility] Comment on above: Plasma potassium alysa ues may be up to 0.5 mmol/L lower than serum values. Protein [Mass/Vol] 7.6 g/dL 6.4 - 8.3 g/dL [facility] Sodium [Moles/Vol] 138 mmol/L 136 - 145 mmol/L [facility] Urea nitrogen [Mass/Vol] 17 mg/dL 8 - 21 mg/dL [facility] ED Provider Noteon ED Provider Note I did not participat e in the care of this pt Aaron Montemayor PA-C 08/29/24 0852 Normal [facility] ED Provider Note EMERGENCY DEPARTMENT ENCOUNTER Pt Name: Juwan Mackey Birthdate 1980 Date of evaluation: 08/29/2024 ED Provider: Johana Laura MD CHIEF COMPLAINT Chief Complaint Patient presents with Back Pain Pt presents to ED for back pain. Pt reports symptoms started a few months ago. Pt denies any injury. Pt reports diarrhea. HISTORY OF PRESENT ILLNESS (Location/Symptom, Timing/Onset, Context/Setting, Quality, Duration, Modifying Factors, Severity) Note limiting factors. HPI Juwan Mackey is a 44 y.o. male who presents to the emergency department for left-sided back pain. Patient states that for the last couple months has been having the symptoms. He states that it started when he thinks he got food poisoning and he spent the night vomiting in the bathroom. He thinks that he passed out at some point during that time and states that since then every time he eats his abdomen feels uncomfortable and that he has been having weird bowel movements . He states that they are strange in color sometimes and sometimes they are watery and sometimes they are not. He is been having this pain and has not been taking anything for the pain. Pain seems to be worse whenever he is eating. States it is also worse when he takes a deep breath. Does not radiate into his chest. No associated fevers or chills. Nursing Notes were reviewed. REVIEW OF SYSTEMS Review of Systems Pertinent positives and negatives per HPI PAST MEDICAL HISTORY History reviewed. No pertinent past medical history. SURGICAL HISTORY History reviewed. No pertinent surgical history. CURRENT MEDICATIONS There are no discharge medications for this patient. ALLERGIES Patient has no known allergies. FAMILY HISTORY No family history on file. SOCIAL HISTORY Social History Socioeconomic History Marital status: Tobacco Use Smoking status: Never Smokeless tobacco: Never Substance and Sexual Activity Alcohol use: Yes Comment: [facility] Drug use: Yes Types: Marijuana Comment: [facility] SCREENINGS PHYSICAL EXAM ED Triage Vitals [08/29/24 0900] Temp Heart Rate Resp BP 37.3 ?C (99.1 ?F) 64 18 (!) 139/91 SpO2 Temp Source Heart Rate Source Patient Position 98 % Temporal Monitor -- BP Location FiO2 (%) -- -- Physical Exam Well-appearing male in no acute distress. Vital signs reviewed and unremarkable. No midline C, T or L spine tenderness. Patient does have tenderness to the left posterior ribs in the lower rib region. There is no skin changes or ecchymosis or erythema. No induration or fluctuance. Lungs are clear to auscultation bilaterally. Abdomen is soft and nontender to palpation. There is no rebound or guarding. DIAGNOSTIC RESULTS RADIOLOGY (Per Emergency Physician): Interpretation per the Radiologist below, if available at the time of this note: CT abdomen pelvis w contrast Final Result Question of mild distal colitis. Report Dictated on Electronically Signed By: Miracle Dougherty MD Electronically Signed Date/Time: 08/29/2024 12:[address] chest angiogram w and/or wo IV contrast Final Result Impression:No large central PE. Consider VQ scan for persistent symptoms. Pulmonary nodules as described above, up to approximately 8 mm.Three month follow-up CT can be considered. See below for published guidelines. Comment: Please note this report has been produced using speech recognition software and may contain errors related to that system including errors in grammar, punctuation, and spelling as well as words and phrases that may be inappropriate. If there are any questions or concerns please feel free to contact the dictating provider for clarification 2017 - UPDATED F[place]ISCHNER SOCIETY GUIDELINES FOR MANAGEMENT OF SMALL PULMONARY NODULES DETECTED ON CT Note: Recommendations do not apply for lung cancer screening, patients with immunosuppression or with known cancer. Dimensions are average of long and short axis rounded to the millimeter SOLITARY NODULE: LOW RISK PATIENT <6mm - No follow up 6-8mm - 6-12 months, then consider 18-24 months >8mm - PET/CT, Bx or followup in 3 months SOLITARY NODULE: HIGH RISK PATIENT <6mm - Optional 6-12 months (suspicious morphology or upper lobe) 6-8mm - 6-12 months, then 18-24 months >8mm - PET/CT, Bx or followup in 3 months MULTIPLE NODULES: LOW RISK PATIENT (Use most suspicious nodule to manage guidelines) All <6mm - No follow up Any >6mm - 3-6 months, then consider 18-24 months MULTIPLE NODULES: HIGH RISK PATIENT (Use most suspicious nodule to manage guidelines) All <6mm - No follow up Any >6mm - 3-6 months, then 18-24 months SUBSOLID NODULE: SINGLE GROUND GLASS OPACITY <6mm - No follow up 6mm or greater - 6-12 months, then every 2 years until 5 years SUBSOLID NODULE: PART SOLID <6mm - No follow up 6mm or greater - 3-6 months, then if solid component <6mm and unchanged ev (more content not included)... [facility] LIPASEon 08-29-2024 Lipase [Catalytic activity/Vol] 22 U/L Normal <55 [facility] Comment on above: Performed By: #### L AB17, LAB99 ####Child Support Investigator: CHARLES MATHIAS ([id number])[facility] ([address] Laboratory - Chemistry and C hemistry - challengeon 08-29-2024 Lipase [Catalytic activity/Vol] 22 U/L NINF - 55 U/L [facility] Lipase [Catalytic activity/V ol]on 08-29-2024 Interpretation and review of laboratory results Normal [facility] No Panel Informationon 08-29 Radiology Study observation (narrative) [facility] Basic metabolic 2000 panelon 06-11-2023 Anion gap [Moles/Vol] 12 mmol/L Normal 9-18 [facility] Comment on above: Order Comment: Speci men Type: BLOOD SPECIMEN Ordering Facility: [facility] Address: [address] [place] [address] Performed By: #### 2 4321-2 #### [facility] CLIA [id number] [address] [place], [place] [address] [address] [address] [place] Calcium [Mass/Vol] 9.3 mg/dL Normal 8.5-10.2 [facility] Comment on above: Order Comment: Speci men Type: BLOOD SPECIMEN Ordering Facility: [facility] Address: [address] [place] [address] Performed By: #### 2 4321-2 #### [facility] CLIA [id number] [address] [place] [address] [place] Chloride [Moles/Vol] 107 mmol/L High 97-105 [facility] Comment on above: Order Comment: Speci men Type: BLOOD SPECIMEN Ordering Facility: [facility] Address: [address] [place] [address] Performed By: #### 2 4321-2 #### [facility] CLIA [id number] [address] [place] [address] [place] CO2 [Moles/Vol] 25 mmol/L Normal 22-30 [facility] Comment on above: Order Comment: Speci men Type: BLOOD SPECIMEN Ordering Facility: [facility] Address: [address] [place] [address] Performed By: #### 2 4321-2 #### [facility] CLIA [id number] [address] [place] [address] [place] Creatinine [Mass/Vol] 1.15 mg/dL Normal 0.73-1.22 [facility] Comment on above: Order Comment: Speci men Type: BLOOD SPECIMEN Ordering Facility: [facility] Address: [address] [place] [address] Performed By: #### 2 4321-2 #### [facility] CLIA [id number] [address] [place] [address] [place] Creatinine and Glomerular filtration rate.predicted panel (S/P/Bld) 81 mL/min/1.73m??? Normal >=60 [facility] Comment on above: Order Comment: Speci men Type: BLOOD SPECIMEN Ordering Facility: [facility] Address: [address] [place] [address] Result Comment: Qing mated Glomerular Filtration Rate (eGFR) is calculated using the 2020 CKD-EPI creatinine equation. This equation utilizes serum creatinine, sex, and age as parameters. The creatinine assay has traceable calibration to isotope dilution-mass spectrometry. Refer to KDIGO guidelines for clinical interpretation. In patients with unstable renal function, e.g. those with acute kidney injury, the eGFR may not accurately reflect actual GFR. Performed By: #### 2 4321-2 #### [facility] CLIA [id number] [address] [place] [address] [place] Glucose [Mass/Vol] 97 mg/dL Normal 74-99 [facility] Comment on above: Order Comment: Specfaith martell Type: BLOOD SPECIMEN Ordering Facility: [facility] Address: [address] [place] [address] Result Comment: The [place] Diabetes Association (ADA) provides guidance for cutoff values for fasting glucose and random glucose. The ADA defines fasting as no caloric intake for at least 8 hours. Fasting plasma glucose results between 100 to 125 mg/dL indicate increased risk for diabetes (prediabetes). Fasting plasma glucose results greater than or equal to 126 mg/dL meet the criteria for diagnosis of diabetes. In the absence of unequivocal hyperglycemia, results should be confirmed by repeat testing. In a patient with classic symptoms of hyperglycemia or hyperglycemic crisis, random plasma glucose results greater than or equal to 200 mg/dL meet the criteria for diagnosis of diabetes. Reference: Standards of Medical Care in Diabetes 2016, [place] Diabetes Association. Diabetes Care. 2016.39(Suppl 1). Performed By: #### 2 4321-2 #### [facility] CLIA [id number] [address] [place] [address] [place] Potassium [Moles/Vol] 4.8 mmol/L Normal 3.7-5.1 [facility] Comment on above: Order Comment: Specfaith martell Type: BLOOD SPECIMEN Ordering Facility: [facility] Address: [address] [place] [address] Performed By: #### 2 4321-2 #### [facility] CLIA [id number] [address] [place] [address] [place] Sodium [Moles/Vol] 144 mmol/L Normal 136-144 [facility] Comment on above: Order Comment: Speci men Type: BLOOD SPECIMEN Ordering Facility: [facility] Address: [address] [place] [address] Performed By: #### 2 4321-2 #### [facility] CLIA [id number] [address] [place] [address] [place] Urea nitrogen [Mass/Vol] 17 mg/dL Normal 9-24 [facility] Comment on above: Order Comment: Speci men Type: BLOOD SPECIMEN [facility] Address: [address] [place] [address] Performed By: #### 2 4321-2 #### [facility] CLIA [id number] [address] [place] [address] [place] Vital Signs Date Time Vital Sign Value Performing Clinician Shanice hutchison 11-05-2024 10:34-0400 Body height 175.3 cm Franklin Tsai PA-C Work Phone: [facility] [employer] 11-05-2024 10:34-0400 Body mass index (BMI) [Ratio] 26.29 kg/m2 Franklin Tsai PA-C Work Phone: [facility] [employer] 11-05-2024 10:34-0400 Body temperature 98.4 [degF] Franklin Tsai PA-C Work Phone: [facility] [employer] 11-05-2024 10:34-0400 Body weight 80.74 kg Franklin Tsai PA-C Work Phone: [facility] [employer] 11-05-2024 10:34-0400 Diastolic blood pressure 79 mm[Hg] Franklin Tsai PA-C Work Phone: [facility] [employer] 11-05-2024 10:34-0400 Heart rate 54 /min Franklin Tsai PA-C Work Phone: [facility] [employer] 11-05-2024 10:34-0400 SaO2% (BldA) [Mass fraction] 97 % Franklinsandy Obregony PA-C Work Phone: [facility] [employer] 11-05-2024 10:34-0400 Systolic blood pressure 123 mm[Hg] Franklin Tsai PA-C Work Phone: [facility] [employer] 09-27-2024 08:32-0400 Body height 175.3 cm Bryon Avina-Josefina DO Work Phone: [facility] [employer] 09-27-2024 08:32-0400 Body mass index (BMI) [Ratio] 26.13 kg/m2 Bryon Fabrice-Josefina DO Work Phone: [facility] [employer] 09-27-2024 08:32-0400 Body temperature 94.3 [degF] Bryon Fabrice-Josefina DO Work Phone: [facility] [employer] 09-27-2024 08:32-0400 Body weight 80.29 kg Bryon Fabrice-Josefina DO Work Phone: [facility] [employer] 09-27-2024 08:32-0400 Diastolic blood pressure 78 mm[Hg] Bryon Fabrice-Josefina DO Work Phone: [facility] [employer] 09-27-2024 08:32-0400 Heart rate 73 /min Bryon Fabrice-Josefina DO Work Phone: [facility] [employer] 09-27-2024 08:32-0400 Respiratory rate 14 /min Bryon Fabrice-Josefina DO Work Phone: [facility] [employer] 09-27-2024 08:32-0400 SaO2% (BldA) [Mass fraction] 98 % Bryon Fabrice-Josefina DO Work Phone: [facility] [employer] Comment on above: 09-27-2024 08:32-0400 Systolic blood pressure 122 mm[Hg] Bryon AvinaToy DO Work Phone: [facility] [employer] 08-29-2024 14:14-0400 Body temperature 98.01 [degF] Johana Laura MD Work Phone: [facility] [employer] 08-29-2024 14:14-0400 Diastolic blood pressure 85 mm[Hg] Johana Laura MD Work Phone: [facility] [employer] 08-29-2024 14:14-0400 Heart rate 52 /min Johana Laura MD Work Phone: [facility] [employer] 08-29-2024 14:14-0400 Respiratory rate 16 /min Johana Laura MD Work Phone: [facility] [employer] 08-29-2024 14:14-0400 SaO2% (BldA) [Mass fraction] 99 % Johana Laura MD Work Phone: [facility] [employer] 08-29-2024 14:14-0400 Systolic blood pressure 139 mm[Hg] Johana Laura MD Work Phone: [facility] [employer] 08-29-2024 08:51-0400 Body height 175.3 cm Johana Laura MD Work Phone: [facility] [employer] 08-29-2024 08:51-0400 Body mass index (BMI) [Ratio] 26.73 kg/m2 Johana Laura MD Work Phone: [facility] [employer] 08-29-2024 08:51-0400 Body weight 82.1 kg Johana Laura MD Work Phone: [facility] [employer] Encounters Encounter Date Encounter Type Care Provider Facility Start: 11-30-2024 End: 11-30-2024 Telephone encounter Bryon AvinaToy DO Work Phone: [facility] [employer] [facility] [place] Start: 11-05-2024 End: 11-05-2024 Office outpatient new 45 minutes Franklin Tsai PA-C Work Phone: [facility] [place] Comment on above: Abnormal CT scan, co brett (Primary Dx); Generalized abdominal pain; History of diarrhea; Bloating; Hematochezia Start: 11-05-2024 End: 11-05-2024 ambulatory FRANKLIN TSAI [facility] Start: 09-27-2024 End: 09-27-2024 Office outpatient new 30 minutes Bryon AvinaJenniferJosefina DO Work Phone: [facility] [place] Comment on above: Pulmonary nodules (P rimary Dx); Does not have primary care provider Start: 09-27-2024 End: 09-27-2024 ambulatory BROYN AVINAJenniferJOSEFINA [facility] Start: 09-03-2024 End: 09-03-2024 Telephone encounter Lashay Linn RN [facility] [address] [facility] Comment on above: Care Coordination (N uance Search for Lung Nodule /) Start: 08-29-2024 End: 08-29-2024 Emergency department patient visit Johana Laura MD Work Phone: [facility] EMERGENCY DEPT Comment on above: Chronic left-sided t horacic back pain (Primary Dx); Does not have primary care provider; Colitis Start: 06-20-2023 End: 06-20-2023 Patient encounter procedure MANJIT PRATT PA-C [facility] Start: 06-11-2023 End: 06-12-2023 ambulatory Facility:[facility] Procedures Date Procedure Procedure Detail Performing Clinician Start: 08-29-2024 Ct abdomen & pelvis w/contrast material Johana Laura MD Work Phone: Start: 08-29-2024 Ct angiography chest w/contrast/noncontrast Johana Laura MD Work Phone: Start: 08-29-2024 Comprehensive metabo lic panel Johana Laura MD Work Phone: Plan of Treatment Date Care Activity Detail Author Start: 2056 RSV Immunization for Adults (1 - 1-dose 75+ series) RSV Immunization for Adults (1 - 1-dose 75+ series) [facility] Start: 2031 Zoster Vaccines (1 of 2) Zoster Vaccines (1 of 2) [facility] Start: 06-27-2025 End: 06-27-2025 Patient encounter procedure 06/27/2025 3:00 PM EST Office Visit [facility] [address] [id number] Franklin Tsai PA-C [address] [id number] [facility] Start: 06-13-2025 End: 06-13-2025 Admission to same day surgery center 06/13/2025 8:00 AM EST - 06/13/2025 8:30 AM EST Surgery [facility] [address] [place] [address] Venus Dailey MD [address] [id number] COLONOSCOPY [41704 (CPT )] [facility] Comment on above: COLONOSCOPY [03537 (CPT )] Start: 06-13-2025 End: 06-13-2025 Colonoscopy flx dx w/collj spec when pfrmd COLONOSCOPY Abnormal CT scan, colon Generalized abdominal pain Hx of diarrhea Bloating Hematochezia 06/13/2025 8:00 AM EST [facility] Start: 06-13-2025 Subsequent hospital visit by physician 06/13/2025 8:00 AM EST Hospital Encounter [facility] [address] [facility] [address] [place] [address] Venus Dailey MD [address] [id number] [facility] Start: 01-14-2025 Influenza vaccination [facility] Start: 12-05-2024 End: 11-05-2025 Helicobacter pylori Ag [Presence] in Stool by Immunoassay H. pylori Stool Antigen Microbiology Routine Generalized abdominal pain Bloating Expected: 12/05/2024 (Approximate), Expires: 11/05/2025 [facility] Work Phone: Comment on above: Expected: 12/05/2024 (Approximate), Expi res: 11/05/2025 Start: 12-04-2024 End: 12-04-2024 Patient encounter procedure 12/04/2024 10:00 AM EDT Office Visit [facility] [place] [address] [place] [address] Bryon Magaña DO [address] [place] [address] [facility] [place] Start: 11-28-2024 End: 09-27-2025 CT Chest WO contrast CT chest wo IV contrast Imaging Routine Pulmonary nodules Expected: 11/28/2024, Expires: 09/27/2025 [facility] Work Phone: Comment on above: Expected: 11/28/2024, Expires: Start: 11-28-2024 End: 11-28-2024 Patient encounter procedure 11/28/2024 7:00 AM EDT Appointment [facility] [address] [place] [address] [facility] [address] Start: 11-05-2024 End: 11-05-2025 C reactive protein [Mass/volume] in Serum or Plasma C-reactive protein Lab Routine Abnormal CT scan, colon Generalized abdominal pain Expected: 11/05/2024 (Approximate), Expires: 11/05/2025 [facility] [employer] Comment on above: Expected: 11/05/2024 (Approximate), Expi res: 11/05/2025 Start: 11-05-2024 End: 11-05-2025 Celiac reflex panel Celiac reflex panel Lab Routine History of diarrhea Bloating Expected: 11/05/2024 (Approximate), Expires: 11/05/2025 [facility] [employer] Comment on above: Expected: 11/05/2024 (Approximate), Expi res: 11/05/2025 Start: 11-05-2024 End: 11-05-2025 Erythrocyte sedimentation rate Sedimentation rate, automated Lab Routine Abnormal CT scan, colon Generalized abdominal pain Expected: 11/05/2024 (Approximate), Expires: 11/05/2025 [facility] Comment on above: Expected: 11/05/2024 (Approximate), Expi res: 11/05/2025 Start: 11-05-2024 End: 11-05-2024 Patient encounter procedure 11/05/2024 10:30 AM EDT Office Visit [facility] [place] [address] [place] [phone] Franklin Tsai PA-C [address] [place] [address] [facility] [place] Start: 09-27-2024 End: 09-27-2024 Patient encounter procedure 09/27/2024 8:30 AM EDT Office Visit [facility] [place] [address] [place] [phone] rByon Magaña DO [address] [place] [address] [facility] [place] Start: 01-15-2024 COVID-19 Vaccine ( season) COVID-19 Vaccine ( season) [facility] Start: 2000 DTaP/Tdap/Td Vaccines (1 - Tdap) DTaP/Tdap/Td Vaccines (1 - Tdap) [facility] Start: 2000 Hepatitis B Vaccines (1 of 3 - 19+ 3-dose series) Hepatitis B Vaccines (1 of 3 - 19+ 3-dose series) [facility] Start: 1999 Diabetes mellitus screening Diabetes Screening [facility] Start: 1999 Hepatitis C screening Hepatitis C Screening [facility] Start: 1994 Varicella vaccination Varicella Vaccines (1 of 2 - 13+ 2-dose series) [facility] Start: 1993 Depression Screening Depression Screening [facility] Start: 1982 MMR Vaccines (1 of 1 - Standard series) MMR Vaccines (1 of 1 - Standard series) [facility] Start: 1981 HIV screening HIV Screening [facility] Start: 1981 Lipid panel Lipid Panel [facility] Payers Date Payer Category Payer Brodie Mcguire sung Managed Care - [facility] RAUL BRODIE [employer]OSS [id number] 2023 Unknown [id number] Social History Date Type Detail Facility Tobacco smoking status [facility] Sex Assigned At Male [facility] Start: 08-29-2024 End: 09-27-2024 Tobacco smoking status NHIS Never smoked tobacco [facility] Start: 08-29-2024 Tobacco use and exposure Smokeless tobacco non-user [facility] Start: 08-29-2024 End: 11-05-2024 Alcoholic beverage intake Current drinker of alcohol (finding) [facility] Start: 08-29-2024 End: 11-05-2024 History of Social function [facility] Start: 08-29-2024 End: 11-05-2024 Tobacco use panel [facility] Start: 08-29-2024 Alcohol Comment [facility] Start: 1980 Sex assigned at Not on file [facility] Start: 08-29-2024 Sex Male (finding) [facility] Start: 09-27-2024 Tobacco use and exposure Former smokeless tobacco user [facility] End: 05-16-2023 History of tobacco use Chews Tobacco [facility] Clinical Notes 08-29-2024 to 12-25-2024 Telephone Encounter - Lashay Linn RN - 12/25/2024 3:28 PM EDTTelephone Encounter - Lashay Linn RN - 12/25/2024 3:28 PM EDTFranklin Tsai PA-C - 11/05/2024 10:30 AM EDTAttachments Note Date & Type Note Facility 12-25-2024 Telephone encounter Note Multiple attempts to contact patient and has still not r/s CT Chest ordered by Dr. Fabrice Galicia. Certified letter mailed as a final attempt to assist with recommended follow up. [facility] 12-25-2024 Miscellaneous Notes Multiple attempts to contact patient and has still not r/s CT Chest ordered by Dr. Fabrice Galicia. Certified letter mailed as a final attempt to assist with recommended follow up. Patient has not read the MCM sent regarding financial assistance program. Attempt to call pt x 1. LM to call back to navigator. Called and spoke to patient regarding lung nodule findings. No referral was received but advised he could be seen in our [facility] to discuss recommended follow up with a flanging machine operator. Patient has not established with a PCP yet, has been waiting for them to call him. Patient scheduled with [facility] on 09/27/24 at 8:30 at [facility] location. Appointment details and location reviewed with patient. No further needs at this time. Pt appeared on [employer] search for Lung nodules after 08/29/24 CTA Chest revealed the following: LUNGS:No definite findings to explain the patient's symptoms. Left upper lobe nodule 8.5 mm x 5.9 mm. Middle lobe nodule 6.4 mm. Left basilar nodule 8 mm. A few small nodules along the fissure. Spine: No convincing acute or occult process. Three month follow-up CT can be considered. Referral: none OSF imaging: none Pt is documented as: never smoker Additional Risk Factors: none Consider additional imaging based on risk factors/Fleischner guidelines. Patient does not have a PCP listed in chart and no previous encounters. documented in this encounter [facility] 12-17-2024 Telephone encounter Note Attempted to contact pt so see if he got the FA paperwork or was able to sched an appt. LM to return call to navigator. [facility] 12-17-2024 Miscellaneous Notes Attempted to contact pt so see if he got the FA paperwork or was able to sched an appt. LM to return call to navigator. Financial assistance program information mailed to patient's home address. Canceled 12/04 appt due to Pt could not afford $[address] Chest. documented in this encounter [facility] 12-17-2024 Telephone encounter Note Patient has not read the MCM sent regarding financial assistance program. Attempt to call pt x 1. LM to call back to navigator. [facility] 12-17-2024 Miscellaneous Notes Patient has not read the MCM sent regarding financial assistance program. Attempt to call pt x 1. LM to call back to navigator. Called and spoke to patient regarding lung nodule findings. No referral was received but advised he could be seen in our Lung Nodule Clinic to discuss recommended follow up with a flanging machine operator. Patient has not established with a PCP yet, has been waiting for them to call him. Patient scheduled with [facility] on 09/27/24 at 8:30 at [facility] location. Appointment details and location reviewed with patient. No further needs at this time. Pt appeared on [employer] search for Lung nodules after 08/29/24 CTA Chest revealed the following: LUNGS:No definite findings to explain the patient's symptoms. Left upper lobe nodule 8.5 mm x 5.9 mm. Middle lobe nodule 6.4 mm. Left basilar nodule 8 mm. A few small nodules along the fissure. Spine: No convincing acute or occult process. Three month follow-up CT can be considered. Referral: none OSF imaging: none Pt is documented as: never smoker Additional Risk Factors: none Consider additional imaging based on risk factors/Fleischner guidelines. Patient does not have a PCP listed in chart and no previous encounters. documented in this encounter [facility] [employer] 12-06-2024 Telephone encounter Note Financial assistance program information mailed to patient's home address. [facility] [employer] 12-06-2024 Miscellaneous Notes Financial assistance program information mailed to patient's home address. Canceled 12/04 appt due to Pt could not afford $[address] Chest. documented in this encounter [facility] 11-30-2024 Telephone encounter Note Canceled 12/04 appt due to Pt could not afford $[address] Chest. [facility] 11-30-2024 Miscellaneous Notes Canceled 12/04 appt due to Pt could not afford $[address] Chest. documented in this encounter [facility] 11-05-2024 History of Presen t illness Narrative Images from the original note were not included. [facility] - [address] [facility] [address] Dept: [phone] Dept Loc: [phone] Visit type: New Reason for Visit: New Patient (Colitis ) Assessment and Plan Problem List Items Addressed This Visit None Visit Diagnoses Abnormal CT scan, colon - Primary Relevant Orders C-reactive protein Sedimentation rate, automated Generalized abdominal pain Relevant Orders H. pylori Stool Antigen C-reactive protein Sedimentation rate, automated History of diarrhea Relevant Orders Celiac reflex panel Bloating Relevant Orders H. pylori Stool Antigen Celiac reflex panel Hematochezia Has had stomach problems for years. Nothing worse recently except for ED which showed ?mild colitis. Thinks it might have been from food poisoning as symptoms are getting better. Usually as bloating that is postprandial. Has a history early satiety but none recently. No nausea or vomiting. Has tried eliminating processed foods with minimal relief. Has bilateral abdominal pain that radiates to the back that is post prandial. Has fluctuating BM that is loose or formed. It does not come out regularly. Has seen hematochezia when wiping. No blood in stool. Thinks it might be related to stress, as he went to [place] for vacation with fishing, and symptoms resolved. Weight is stable. Recommend colonoscopy for further evaluation. Golytely ordered. Will get Celiac serology, H. Pylori stool antigen, CRP, Sed rate for further evaluation. Trial PPI. Follow up in about 6 months (around 05/07/2025) for Next scheduled follow-up. Advised patient to call office with new or worsening symptoms, questions, or concerns. Patient verbalized understanding and agreement of plan. Frank Echeverria is a 44 y.o. male who presents as a new patient. He was referred by ED regarding colitis. HPI Has had stomach problems for years. Nothing worse recently except for ED which showed ?mild colitis. Thinks it might have been from food poisoning as symptoms are getting better. Usually as bloating that is postprandial. Has a history early satiety but none recently. No nausea or vomiting. Has tried eliminating processed foods with minimal relief. Has bilateral abdominal pain that radiates to the back that is post prandial. Has fluctuating BM that is loose or formed. It does not come out regularly. Has seen hematochezia when wiping. No blood in stool. Thinks it might be related to stress, as he went to [place] for vacation with fishing, and symptoms resolved. Weight is stable. EtOH: None. Tobacco: None. NSAIDs: None. Illicit drugs: Marijuana daily. Family History of Colon Cancer: None. Prior EGD/Colonoscopy: None. Prior Abdominal Surgery: None. Review of Systems Constitutional: Negative for appetite change, chills, fatigue, fever and unexpected weight change. HENT: Negative for sore throat, trouble swallowing and voice change. Respiratory: Negative for cough, choking and shortness of breath. Cardiovascular: Negative for chest pain. Gastrointestinal: Positive for anal bleeding and diarrhea. Negative for abdominal distention, abdominal pain, blood in stool, constipation, nausea, rectal pain and vomiting. Genitourinary: Negative for difficulty urinating. Musculoskeletal: Negative for arthralgias. Skin: Negative for color change, pallor and rash. Allergic/Immunologic: Negative for environmental allergies and food allergies. Neurological: Negative for tremors and weakness. Hematological: Does not bruise/bleed easily. Psychiatric/Behavioral: Negative for confusion. Allergies[1] Current Medications[2] There are no active problems to display for this patient. Social History Tobacco Use Smoking status: Never Smokeless tobacco: Former Types: Chew Quit date: 05/16/2023 Substance Use Topics Alcohol use: Yes Alcohol/week: 1.0 standard drink of alcohol Types: 1 Shots of liquor per week Comment: [facility] Family History[3] Objective BP 123/79 Pulse 54 Temp 36.9 C (98.4 F) Ht 5' 9 (1.753 m) Wt 178 lb (80.7 kg) SpO2 97% BMI 26.29 kg/m Physical Exam Vitals reviewed. Constitutional: General: He is not in acute distress. Appearance: Normal appearance. He is not ill-appearing. Cardiovascular: Rate and Rhythm: Normal rate and regular rhythm. Pulmonary: Effort: Pulmonary effort is normal. Breath sounds: Normal breath sounds. Abdominal: General: Bowel sounds are normal. There is no distension. Palpations: Abdomen is soft. Tenderness: There is no abdominal tenderness. There is no guarding or rebound. Neurological: General: No focal deficit present. Mental Status: He is alert and oriented to person, place, and time. Psychiatric: Mood and Affect: Mood normal. Behavior: Behavior normal. Data Reviewed and Summarized Labs: Lab Results Component Value Date WBC 7.2 08/29/2024 HGB 14.6 08/29/2024 HCT 45.3 08/29/2024 MCV 84.0 08/29/2024 PLT 270 08/29/2024 Lab Results Component Value Date GLUCOSE 97 08/29/2024 CALCIUM 9.9 08/29/2024 NA 138 08/29/2024 K 5.2 (H) 08/29/2024 CO2 26 08/29/2024 CL 107 08/29/2024 BUN 17 08/29/2024 CREATININE 1.04 08/29/2024 Lab Results Component Value Date ALT 34 08/29/2024 AST 27 08/29/2024 ALKPHOS 42 08/29/2024 BILITOT 0.7 08/29/2024 Lab Results Component Value Date LIPASE 22 08/29/2024 Imaging/Testing: Exam Date/Time: 08/29/2024 12:11 Procedure: CT ABDOMEN PELVIS W CONTRAST Ordering Provider: LAURA YASMIN Reason For Exam: Abdominal pain, acute, nonlocalized EXAM: CT Abdomen and Pelvis With Intravenous Contrast CLINICAL INDICATION: Abdominal pain, acute, nonlocalized. Flank pain. Left lower quadrant pain. TECHNIQUE: Axial computed tomography images of the abdomen and pelvis with intravenous contrast. This CT exam was performed using one or more of the following dose reduction techniques: automated exposure control, adjustment of the mA and/or kV according to patient size, and/or use of iterative reconstruction technique. COMPARISON: CTA chest on the same date FINDINGS: LUNG BASES: Chest/lung findings are dictated separately. No consolidation. ABDOMEN: LIVER: Unremarkable. No mass. GALLBLADDER AND BILE DUCTS: Unremarkable. No calcified stones. No ductal dilation. PANCREAS: Unremarkable. No mass. No ductal dilation. SPLEEN: Unremarkable. No splenomegaly. ADRENALS: Unremarkable. No mass. KIDNEYS AND URETERS: Unremarkable. No solid mass. No hydronephrosis. STOMACH AND BOWEL: There is question of very mild circumferential wall thickening of the distal descending colon and the proximal sigmoid colon. No bowel obstruction. No bowel wall pneumatosis. PELVIS: APPENDIX: Normal appendix. BLADDER: Unremarkable. No mass. REPRODUCTIVE: Unremarkable as visualized. ABDOMEN and PELVIS: INTRAPERITONEAL SPACE: Unremarkable. No free air. No significant fluid collection. BONES/JOINTS: Minimal bilateral hip joint DJD. Mild degenerative change of the pubic symphysis. No acute fracture. SOFT TISSUES: Tiny fat-containing umbilical hernia. VASCULATURE: Unremarkable. No abdominal aortic aneurysm. LYMPH NODES: Unremarkable. No enlarged lymph nodes. IMPRESSION: Question of mild distal colitis. Franklin Tsai PA-C 12:46 PM 11/05/24 [1] No Known Allergies [2] Current Outpatient Medications: pantoprazole (Protonix) 20 MG EC tablet, Take 1 tablet (20 mg) by mouth every morning (before breakfast). Do not crush, chew, or split., Disp: 90 tablet, Rfl: 0 polyethylene glycol (GaviLyte-G) 236 g solution, Take according to colonoscopy bowel prep instructions., Disp: 4000 mL, Rfl: 0 [3] No family history on file. documented in this encounter [facility] 11-05-2024 Instructions Olinda Valentin MA - 11/05/2024 10:30 AM EDT --Please call office with any questions or concerns! [phone] --Schedule colonoscopy for further evaluation of the symptoms (all locations). . 06/13/25 at 8:00 am arrive at 7:[address] Dailey. Case # [id number] --A prescription for GoLytely was sent to your pharmacy. This is the bowel prep for your colonoscopy. --Obtain additional blood work and stool study for further evaluation of the symptoms. Orders given to patient. --Begin medication (Pantoprazole 20 mg daily). Do not start until after completing stool study. --Please see handout provided regarding additional information. --Follow-up with PCP, and in GI clinic in about 1 month following the above evaluation and recommendations. The following attachments cannot be sent through Care Everywhere.Colonoscopy (Rwandan)documented in this encounter [facility] 09-27-2024 History of Presen t illness Narrative [facility], Pulmonary Critical Care Medicine [address] [place] [id number] Pulmonary Patient Visit - [facility] 09/27/2024 Referring Physician: No primary care provider on file. Reason for Referral: Pulmonary nodules History of Present Illness Juwan Mackey is a 44 y.o. M with no significant PMH who presented for incidentally found pulmonary nodules. Stated that he recently developed abdominal and back pain prompting evaluation in the ER. Found on CT with mild colitis and multiple pulmonary nodules. Pending appointment with GI. Does not believe that he has ever completed prior chest imaging for comparison. Denied any respiratory symptoms including SOB, cough, hemoptysis, chest pain, unintentional weight loss, night sweats. Smoking history: Prior chewing tobacco quit 2022. Denied smoking. Marijuana x 20 years. Vaping marijuana Occupational exposure: [employer] Family history of malignancy: Denied in parents Age appropriate cancer screening Colonoscopy: Not yet due PastMedical History Medical History[1] Past Surgical History Surgical History[2] Allergies Allergies[3] Medications Medication Documentation Review Audit Reviewed by Bryon Magaña DO (Physician) on 09/27/24 at 0900 Medication Order Taking? Sig Documenting Provider Last Dose Status No Medications to Display Social History Social History Tobacco Use Smoking status: Never Smokeless tobacco: Former Types: Chew Quit date: 05/16/2023 Substance Use Topics Alcohol use: Yes Alcohol/week: 1.0 standard drink of alcohol Types: 1 Shots of liquor per week Comment: [facility] FamilyHistory Family History[4] Review of Systems Review of Systems Constitutional: Negative. Respiratory: Negative. Cardiovascular: Negative. Gastrointestinal: Positive for abdominal pain and diarrhea. Musculoskeletal: Positive for back pain. Physical Exam Vitals: 09/27/24 0832 BP: 122/78 BP Location: Left arm Patient Position: Sitting BP Cuff Size: Adult Pulse: 73 Resp: 14 Temp: (!) 34.6 C (94.3 F) TempSrc: Temporal SpO2: 98% Weight: 177 lb (80.3 kg) Height: 5' 9.02 (1.753 m) Physical Exam Vitals reviewed. Constitutional: General: He is not in acute distress. Appearance: Normal appearance. HENT: Head: Normocephalic and atraumatic. Mouth/Throat: Mouth: Mucous membranes are moist. Pharynx: No oropharyngeal exudate. Eyes: General: No scleral icterus. Extraocular Movements: Extraocular movements intact. Cardiovascular: Rate and Rhythm: Normal rate and regular rhythm. Pulmonary: Effort: Pulmonary effort is normal. No respiratory distress. Breath sounds: Normal breath sounds. No wheezing or rales. Musculoskeletal: General: No swelling. Skin: General: Skin is warm and dry. Neurological: Mental Status: He is alert and oriented to person, place, and time. Psychiatric: Mood and Affect: Mood normal. Labs: Available studies were reviewed Radiology: Personally reviewed Chest CT 08/29/24: Impression:No large central PE. Consider VQ scan for persistent symptoms. Pulmonary nodules as described above, up to approximately 8 mm.Three month follow-up CT can be considered. See below for published guidelines. PFT's: Assessment/plan: Multiple pulmonary nodules Prior chewing tobacco Marijuana use -Chest imaging reviewed with patient including multiple pulmonary nodules and prominent right hilar lymph node. Reviewed possible etiologies for nodules including infection, inflammation, malignancy. Discussed options for further evaluation. Per Fleischner guidelines will repeat chest CT in 3 months, due on November. - Referral placed for PCP Follow up: After CT to review results Please seek immediate medical attention for any worsening or worrying new symptoms. Patient education, benefits, risks, and precautions provided. Management plan was discussed in detail and in agreement. All questions or concerns answered to satisfaction and understood. Bryon Magaña DO 9:01 AM 09/27/24 Pulmonary and Critical Care Medicine [1] Past Medical History: Diagnosis Date Pneumonia two weeks old [2] Past Surgical History: Procedure Laterality Date SHOULDER SURGERY [3] No Known Allergies [4] No family history on file. documented in this encounter [facility] 09-27-2024 Instructions Shae Bauman MA - 09/27/2024 8:30 AM EDT YOUR APPOINTMENT TODAY WAS WITH THE [facility] LUNG NODULE CLINIC, COPD CLINIC, PULMONARY AND SLEEP MEDICINE OFFICE. PLEASE CALL OUR OFFICE AT [phone] IF YOU HAVE NOT RECEIVED YOUR TEST RESULTS 7 DAYS AFTER TESTING IS COMPLETED. PLEASE REMEMBER TO REQUEST REFILLS AT YOUR OFFICE VISITS. PHONE/FAX REQUESTS REQUIRE 48-72 HOURS FOR RESPONSE. A FRIENDLY REMINDER COPAYS ARE DUE AT TIME OF SERVICE. THANK YOU. Our Patients Are Important! We want to improve and you can help. After your visit we want you to feel: Listened to, Respected and have your health care explained. You may receive a survey asking you about your visit. Please complete the survey. We will use your feedback to make improvements. COVID-19 VACCINATION INFORMATION: . [phone] [email or web address] [facility] Central Scheduling [phone] [facility] Sleep Scheduling [phone] documented in this encounter [facility] 09-06-2024 Note Called and spoke to patient regarding lung nodule findings. No referral was received but advised he could be seen in our Lung Nodule Clinic to discuss recommended follow up with a flanging machine operator. Patient has not established with a PCP yet, has been waiting for them to call him. Patient scheduled with [facility] on 09/27/24 at 8:30 at [facility] location. Appointment details and location reviewed with patient. No further needs at this time. [facility] 09-06-2024 Telephone encounter Note Called and spoke to patient regarding lung nodule findings. No referral was received but advised he could be seen in our Lung Nodule Clinic to discuss recommended follow up with a flanging machine operator. Patient has not established with a PCP yet, has been waiting for them to call him. Patient scheduled with [facility] on 09/27/24 at 8:30 at [facility] location. Appointment details and location reviewed with patient. No further needs at this time. [facility] 09-06-2024 Miscellaneous Notes Called and spoke to patient regarding lung nodule findings. No referral was received but advised he could be seen in our Lung Nodule Clinic to discuss recommended follow up with a flanging machine operator. Patient has not established with a PCP yet, has been waiting for them to call him. Patient scheduled with [facility] on 09/27/24 at 8:30 at [facility] location. Appointment details and location reviewed with patient. No further needs at this time. Pt appeared on [employer] search for Lung nodules after 08/29/24 CTA Chest revealed the following: LUNGS:No definite findings to explain the patient's symptoms. Left upper lobe nodule 8.5 mm x 5.9 mm. Middle lobe nodule 6.4 mm. Left basilar nodule 8 mm. A few small nodules along the fissure. Spine: No convincing acute or occult process. Three month follow-up CT can be considered. Referral: none OSF imaging: none Pt is documented as: never smoker Additional Risk Factors: none Consider additional imaging based on risk factors/Fleischner guidelines. Patient does not have a PCP listed in chart and no previous encounters. documented in this encounter [facility] 09-03-2024 Telephone encounter Note Pt appeared on [employer] search for Lung nodules after 08/29/24 CTA Chest revealed the following: LUNGS:No definite findings to explain the patient's symptoms. Left upper lobe nodule 8.5 mm x 5.9 mm. Middle lobe nodule 6.4 mm. Left basilar nodule 8 mm. A few small nodules along the fissure. Spine: No convincing acute or occult process. Three month follow-up CT can be considered. Referral: none OSF imaging: none Pt is documented as: never smoker Additional Risk Factors: none Consider additional imaging based on risk factors/Fleischner guidelines. Patient does not have a PCP listed in chart and no previous encounters. [facility] 09-03-2024 Miscellaneous Notes Pt appeared on [employer] search for Lung nodules after 08/29/24 CTA Chest revealed the following: LUNGS:No definite findings to explain the patient's symptoms. Left upper lobe nodule 8.5 mm x 5.9 mm. Middle lobe nodule 6.4 mm. Left basilar nodule 8 mm. A few small nodules along the fissure. Spine: No convincing acute or occult process. Three month follow-up CT can be considered. Referral: none OSF imaging: none Pt is documented as: never smoker Additional Risk Factors: none Consider additional imaging based on risk factors/Fleischner guidelines. Patient does not have a PCP listed in chart and no previous encounters. documented in this encounter [facility] 08-29-2024 Emergency department Note I did not participate in the care of this pt Aaron Montemayor PA-C 08/29/24 0852 EMERGENCY DEPARTMENT ENCOUNTER Pt Name: Juwan Mackey Birthdate 1980 Date of evaluation: 08/29/2024 ED Provider: Johana Laura MD CHIEF COMPLAINT Chief Complaint Patient presents with Back Pain Pt presents to ED for back pain. Pt reports symptoms started a few months ago. Pt denies any injury. Pt reports diarrhea. HISTORY OF PRESENT ILLNESS (Location/Symptom, Timing/Onset, Context/Setting, Quality, Duration, Modifying Factors, Severity) Note limiting factors. HPI Juwan Mackey is a 44 y.o. male who presents to the emergency department for left-sided back pain. Patient states that for the last couple months has been having the symptoms. He states that it started when he thinks he got food poisoning and he spent the night vomiting in the bathroom. He thinks that he passed out at some point during that time and states that since then every time he eats his abdomen feels uncomfortable and that he has been having weird bowel movements . He states that they are strange in color sometimes and sometimes they are watery and sometimes they are not. He is been having this pain and has not been taking anything for the pain. Pain seems to be worse whenever he is eating. States it is also worse when he takes a deep breath. Does not radiate into his chest. No associated fevers or chills. Nursing Notes were reviewed. REVIEW OF SYSTEMS Review of Systems Pertinent positives and negatives per HPI PAST MEDICAL HISTORY History reviewed. No pertinent past medical history. SURGICAL HISTORY History reviewed. No pertinent surgical history. CURRENT MEDICATIONS There are no discharge medications for this patient. ALLERGIES Patient has no known allergies. FAMILY HISTORY No family history on file. SOCIAL HISTORY Social History Socioeconomic History Marital status: Tobacco Use Smoking status: Never Smokeless tobacco: Never Substance and Sexual Activity Alcohol use: Yes Comment: [facility] Drug use: Yes Types: Marijuana Comment: [facility] SCREENINGS PHYSICAL EXAM ED Triage Vitals [08/29/24 0900] Temp Heart Rate Resp BP 37.3 C (99.1 F) 64 18 (!) 139/91 SpO2 Temp Source Heart Rate Source Patient Position 98 % Temporal Monitor -- BP Location FiO2 (%) -- -- Physical Exam Well-appearing male in no acute distress. Vital signs reviewed and unremarkable. No midline C, T or L spine tenderness. Patient does have tenderness to the left posterior ribs in the lower rib region. There is no skin changes or ecchymosis or erythema. No induration or fluctuance. Lungs are clear to auscultation bilaterally. Abdomen is soft and nontender to palpation. There is no rebound or guarding. DIAGNOSTIC RESULTS RADIOLOGY (Per Emergency Physician): Interpretation per the Radiologist below, if available at the time of this note: CT abdomen pelvis w contrast Final Result Question of mild distal colitis. Report Dictated on Electronically Signed By: Miracle Dougherty MD Electronically Signed Date/Time: 08/29/2024 12:[address] chest angiogram w and/or wo IV contrast Final Result Impression:No large central PE. Consider VQ scan for persistent symptoms. Pulmonary nodules as described above, up to approximately 8 mm.Three month follow-up CT can be considered. See below for published guidelines. Comment: Please note this report has been produced using speech recognition software and may contain errors related to that system including errors in grammar, punctuation, and spelling as well as words and phrases that may be inappropriate. If there are any questions or concerns please feel free to contact the dictating provider for clarification 2017 - UPDATED FLEISCHNER SOCIETY GUIDELINES FOR MANAGEMENT OF SMALL PULMONARY NODULES DETECTED ON CT Note: Recommendations do not apply for lung cancer screening, patients with immunosuppression or with known cancer. Dimensions are average of long and short axis rounded to the millimeter SOLITARY NODULE: LOW RISK PATIENT <6mm - No follow up 6-8mm - 6-12 months, then consider 18-24 months >8mm - PET/CT, Bx or followup in 3 months SOLITARY NODULE: HIGH RISK PATIENT <6mm - Optional 6-12 months (suspicious morphology or upper lobe) 6-8mm - 6-12 months, then 18-24 months >8mm - PET/CT, Bx or followup in 3 months MULTIPLE NODULES: LOW RISK PATIENT (Use most suspicious nodule to manage guidelines) All <6mm - No follow up Any >6mm - 3-6 months, then consider 18-24 months MULTIPLE NODULES: HIGH RISK PATIENT (Use most suspicious nodule to manage guidelines) All <6mm - No follow up Any >6mm - 3-6 months, then 18-24 months SUBSOLID NODULE: SINGLE GROUND GLASS OPACITY <6mm - No follow up 6mm or greater - 6-12 months, then every 2 years until 5 years SUBSOLID NODULE: PART SOLID <6mm - No follow up 6mm or greater - 3-6 months, then if solid component <6mm and unchanged every year until 5 years MULTIPLE SUBSOLID NODULES: All <6mm - 3-6 months, then if stable 24 and 48 months 6mm or greater - 3-6 months, subsequent management based upon most suspicious nodule Report Dictated on Electronically Signed By: Wayne Ayala MD Electronically Signed Date/Time: 08/29/2024 12:31 PM EDT LABS: Labs Reviewed COMPREHENSIVE METABOLIC PANEL - Abnormal Result Value SODIUM 138 POTASSIUM 5.2 (*) CHLORIDE 107 CARBON DIOXIDE 26 ANION GAP 5 UREA NITROGEN 17 CREATININE 1.04 GLUCOSE 97 CALCIUM 9.9 AST (SGOT) 27 ALT 34 ALKALINE PHOSPHATASE 42 ALBUMIN 4.5 BILIRUBIN, TOTAL 0.7 TOTAL PROTEIN 7.6 eGFR >90.0 CBC WITH AUTO DIFFERENTIAL - Normal Auto WBC 7.2 RBC 5.39 Hemoglobin 14.6 Hematocrit 45.3 MCV 84.0 MCH 27.1 MCHC 32.2 RDW 13.2 Platelets 270 MPV 10.7 nRBC 0.0 Neutrophils Relative 69.1 Lymphocytes Relative 19.1 Monocytes Relative 10.5 Eosinophils Relative 0.7 Basophils Relative 0.3 Immature Grans % 0.3 Neutrophils Absolute 5.0 Lymphocytes Absolute 1.4 Monocytes Absolute 0.8 Eosinophils Absolute 0.1 Basophils Absolute 0.0 Immature Grans Absolute 0.0 LIPASE - Normal LIPASE 22 All other labs were within normal range or not returned as of this dictation. EMERGENCY DEPARTMENT COURSE and DIFFERENTIAL DIAGNOSIS/MDM: Vitals: Vitals: 08/29/24 0851 08/29/24 0900 08/29/24 1414 BP: (!) 139/91 139/85 Pulse: 64 52 Resp: 18 16 Temp: 37.3 C (99.1 F) 36.7 C (98 F) TempSrc: Temporal Temporal SpO2: 98% 99% Weight: 82.1 kg (181 lb) Height: 1.753 m (5' 9) Medications ketorolac (Toradol) injection 30 mg (30 mg IntraVENous Given 08/29/24 1038) iopamidol (Isovue-370) 76 % injection 75 mL (75 mL IntraVENous Given 08/29/24 1214) Medical Decision Making Problems Addressed: Chronic left-sided thoracic back pain: complicated acute illness or injury Colitis: complicated acute illness or injury Does not have primary care provider: complicated acute illness or injury Amount and/or Complexity of Data Reviewed Labs: ordered. Radiology: ordered. Risk Prescription drug management. 44-year-old male presenting to the emergency department today for left-sided back pain. Afebrile and hemodynamically stable. He states that it has been there for the last couple months, worse with deep breathing and worse after he is eating. It is reproducible on exam. Concern for musculoskeletal pain versus pancreatitis versus gastritis. Labs and imaging ordered. Labs are unremarkable. Imaging does show signs of colitis otherwise unremarkable. Discussed with the patient. He is given follow-up. 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 Instruction regarding son discharged stable condition. Diagnostic tests considered but not performed: External records reviewed: Diagnostics interpreted by me: Discussions with other clinicians: Chronic conditions impacting care: Social determinants of health affecting care: lack of primary care provider ED Medications managed: Medications ketorolac (Toradol) injection 30 mg (30 mg IntraVENous Given 08/29/24 1038) iopamidol (Isovue-370) 76 % injection 75 mL (75 mL IntraVENous Given 08/29/24 1214) Prescription drugs considered: I Johana Laura MD am the diesel pile driver operator of record. FINAL IMPRESSION 1. Chronic left-sided thoracic back pain 2. Does not have primary care provider 3. Colitis DISPOSITION Discharge 08/29/2024 02:23:03 PM PATIENT REFERRED TO: [facility] [place] [address] [facility] [address] [facility] [place] [address] [facility] [address] DISCHARGE MEDICATIONS: There are no discharge medications for this patient. (Comment: Please note this report has been produced using speech recognition software and may contain errors related to that system including errors in grammar, punctuation, and spelling, as well as words and phrases that may be inappropriate. If there are any questions or concerns please feel free to contact the dictating provider for clarification.) Johana Laura MD (electronically signed) Emergency Medicine Provider Johana Laura MD 08/29/24 2019 documented in this encounter [facility] 08-29-2024 Physician Emergency department Note I did not participate in the care of this pt Aaron Montemayor PA-C 08/29/24 0852 [facility] Phone: 08-29-2024 Physician Emergency department Note EMERGENCY DEPARTMENT ENCOUNTER Pt Name: Juwan Mackey Birthdate 1980 Date of evaluation: 08/29/2024 ED Provider: Johana Laura MD CHIEF COMPLAINT Chief Complaint Patient presents with Back Pain Pt presents to ED for back pain. Pt reports symptoms started a few months ago. Pt denies any injury. Pt reports diarrhea. HISTORY OF PRESENT ILLNESS (Location/Symptom, Timing/Onset, Context/Setting, Quality, Duration, Modifying Factors, Severity) Note limiting factors. HPI Juwan Mackey is a 44 y.o. male who presents to the emergency department for left-sided back pain. Patient states that for the last couple months has been having the symptoms. He states that it started when he thinks he got food poisoning and he spent the night vomiting in the bathroom. He thinks that he passed out at some point during that time and states that since then every time he eats his abdomen feels uncomfortable and that he has been having weird bowel movements . He states that they are strange in color sometimes and sometimes they are watery and sometimes they are not. He is been having this pain and has not been taking anything for the pain. Pain seems to be worse whenever he is eating. States it is also worse when he takes a deep breath. Does not radiate into his chest. No associated fevers or chills. Nursing Notes were reviewed. REVIEW OF SYSTEMS Review of Systems Pertinent positives and negatives per HPI PAST MEDICAL HISTORY History reviewed. No pertinent past medical history. SURGICAL HISTORY History reviewed. No pertinent surgical history. CURRENT MEDICATIONS There are no discharge medications for this patient. ALLERGIES Patient has no known allergies. FAMILY HISTORY No family history on file. SOCIAL HISTORY Social History Socioeconomic History Marital status: Tobacco Use Smoking status: Never Smokeless tobacco: Never Substance and Sexual Activity Alcohol use: Yes Comment: [facility] Drug use: Yes Types: Marijuana Comment: [facility] SCREENINGS PHYSICAL EXAM ED Triage Vitals [04/16/25 0900] Temp Heart Rate Resp BP 37.3 C (99.1 F) 64 18 (!) 139/91 SpO2 Temp Source Heart Rate Source Patient Position 98 % Temporal Monitor -- BP Location FiO2 (%) -- -- Physical Exam Well-appearing male in no acute distress. Vital signs reviewed and unremarkable. No midline C, T or L spine tenderness. Patient does have tenderness to the left posterior ribs in the lower rib region. There is no skin changes or ecchymosis or erythema. No induration or fluctuance. Lungs are clear to auscultation bilaterally. Abdomen is soft and nontender to palpation. There is no rebound or guarding. DIAGNOSTIC RESULTS RADIOLOGY (Per Emergency Physician): Interpretation per the Radiologist below, if available at the time of this note: CT abdomen pelvis w contrast Final Result Question of mild distal colitis. Report Dictated on Electronically Signed By: Miracle Dougherty MD Electronically Signed Date/Time: 08/29/2024 12:[address] chest angiogram w and/or wo IV contrast Final Result Impression:No large central PE. Consider VQ scan for persistent symptoms. Pulmonary nodules as described above, up to approximately 8 mm.Three month follow-up CT can be considered. See below for published guidelines. Comment: Please note this report has been produced using speech recognition software and may contain errors related to that system including errors in grammar, punctuation, and spelling as well as words and phrases that may be inappropriate. If there are any questions or concerns please feel free to contact the dictating provider for clarification 2017 - UPDATED [employer] GUIDELINES FOR MANAGEMENT OF SMALL PULMONARY NODULES DETECTED ON CT Note: Recommendations do not apply for lung cancer screening, patients with immunosuppression or with known cancer. Dimensions are average of long and short axis rounded to the millimeter SOLITARY NODULE: LOW RISK PATIENT <6mm - No follow up 6-8mm - 6-12 months, then consider 18-24 months >8mm - PET/CT, Bx or followup in 3 months SOLITARY NODULE: HIGH RISK PATIENT <6mm - Optional 6-12 months (suspicious morphology or upper lobe) 6-8mm - 6-12 months, then 18-24 months >8mm - PET/CT, Bx or followup in 3 months MULTIPLE NODULES: LOW RISK PATIENT (Use most suspicious nodule to manage guidelines) All <6mm - No follow up Any >6mm - 3-6 months, then consider 18-24 months MULTIPLE NODULES: HIGH RISK PATIENT (Use most suspicious nodule to manage guidelines) All <6mm - No follow up Any >6mm - 3-6 months, then 18-24 months SUBSOLID NODULE: SINGLE GROUND GLASS OPACITY <6mm - No follow up 6mm or greater - 6-12 months, then every 2 years until 5 years SUBSOLID NODULE: PART SOLID <6mm - No follow up 6mm or greater - 3-6 months, then if solid component <6mm and unchanged every year until 5 years MULTIPLE SUBSOLID NODULES: All <6mm - 3-6 months, then if stable 24 and 48 months 6mm or greater - 3-6 months, subsequent management based upon most suspicious nodule Report Dictated on Electronically Signed By: Wayne Ayala MD Electronically Signed Date/Time: 08/29/2024 12:31 PM EDT LABS: Labs Reviewed COMPREHENSIVE METABOLIC PANEL - Abnormal Result Value SODIUM 138 POTASSIUM 5.2 (*) CHLORIDE 107 CARBON DIOXIDE 26 ANION GAP 5 UREA NITROGEN 17 CREATININE 1.04 GLUCOSE 97 CALCIUM 9.9 AST (SGOT) 27 ALT 34 ALKALINE PHOSPHATASE 42 ALBUMIN 4.5 BILIRUBIN, TOTAL 0.7 TOTAL PROTEIN 7.6 eGFR >90.0 CBC WITH AUTO DIFFERENTIAL - Normal Auto WBC 7.2 RBC 5.39 Hemoglobin 14.6 Hematocrit 45.3 MCV 84.0 MCH 27.1 MCHC 32.2 RDW 13.2 Platelets 270 MPV 10.7 nRBC 0.0 Neutrophils Relative 69.1 Lymphocytes Relative 19.1 Monocytes Relative 10.5 Eosinophils Relative 0.7 Basophils Relative 0.3 Immature Grans % 0.3 Neutrophils Absolute 5.0 Lymphocytes Absolute 1.4 Monocytes Absolute 0.8 Eosinophils Absolute 0.1 Basophils Absolute 0.0 Immature Grans Absolute 0.0 LIPASE - Normal LIPASE 22 All other labs were within normal range or not returned as of this dictation. EMERGENCY DEPARTMENT COURSE and DIFFERENTIAL DIAGNOSIS/MDM: Vitals: Vitals: 08/29/24 0851 08/29/24 0900 08/29/24 1414 BP: (!) 139/91 139/85 Pulse: 64 52 Resp: 18 16 Temp: 37.3 C (99.1 F) 36.7 C (98 F) TempSrc: Temporal Temporal SpO2: 98% 99% Weight: 82.1 kg (181 lb) Height: 1.753 m (5' 9) Medications ketorolac (Toradol) injection 30 mg (30 mg IntraVENous Given 08/29/24 1038) iopamidol (Isovue-370) 76 % injection 75 mL (75 mL IntraVENous Given 08/29/24 1214) Medical Decision Making Problems Addressed: Chronic left-sided thoracic back pain: complicated acute illness or injury Colitis: complicated acute illness or injury Does not have primary care provider: complicated acute illness or injury Amount and/or Complexity of Data Reviewed Labs: ordered. Radiology: ordered. Risk Prescription drug management. 44-year-old male presenting to the emergency department today for left-sided back pain. Afebrile and hemodynamically stable. He states that it has been there for the last couple months, worse with deep breathing and worse after he is eating. It is reproducible on exam. Concern for musculoskeletal pain versus pancreatitis versus gastritis. Labs and imaging ordered. Labs are unremarkable. Imaging does show signs of colitis otherwise unremarkable. Discussed with the patient. He is given follow-up. 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 Instruction regarding son discharged stable condition. Diagnostic tests considered but not performed: External records reviewed: Diagnostics interpreted by me: Discussions with other clinicians: Chronic conditions impacting care: Social determinants of health affecting care: lack of primary care provider ED Medications managed: Medications ketorolac (Toradol) injection 30 mg (30 mg IntraVENous Given 08/29/24 1038) iopamidol (Isovue-370) 76 % injection 75 mL (75 mL IntraVENous Given 08/29/24 1214) Prescription drugs considered: I Johana Laura MD am the diesel pile driver operator of record. FINAL IMPRESSION 1. Chronic left-sided thoracic back pain 2. Does not have primary care provider 3. Colitis DISPOSITION Discharge 08/29/2024 02:23:03 PM PATIENT REFERRED TO: [facility] [place] [address] [facility] [address] [facility] [address] [facility] [address] DISCHARGE MEDICATIONS: There are no discharge medications for this patient. (Comment: Please note this report has been produced using speech recognition software and may contain errors related to that system including errors in grammar, punctuation, and spelling, as well as words and phrases that may be inappropriate. If there are any questions or concerns please feel free to contact the dictating provider for clarification.) Johana Laura MD (electronically signed) Emergency Medicine Provider Johana Laura MD 08/29/24 1732 [facility] Evaluation + Plan note No data available for this section [facility] Evaluation note Diagnosis Chronic left-sided thoracic back pain- Primary Does not have primary care provider Colitis Other and unspecified noninfectious gastroenteritis and colitis documented in this encounter [facility] note* Diagnosis Pulmonary nodules- Primary Other diseases of lung, not elsewhere classified Does not have primary care provider documented in this encounter [facility]Evaluation note* Diagnosis Abnormal CT scan, colon- Primary Generalized abdominal pain Abdominal pain, generalized History of diarrhea Bloating Flatulence, eructation, and gas pain Hematochezia Blood in stool Abnormal CT scan, colon Generalized abdominal pain Abdominal pain, generalized Hx of diarrhea Bloating Flatulence, eructation, and gas pain Hematochezia Blood in stool [facility] No data available for this section [facility] Discharge instructions* Attachments The following attachments cannot be sent through Care Everywhere. * Colitis (Rwandan) * Upper Back Pain ([place]wandan) [facility] No data available for this section [facility] Summary Purpose Family History No Family History Records Found No data available for this section No Family History Records Found Advance Directives No Advanced Directives Records FoundNo Advanced Directives Records Found Additional Source Comments (unrecognized sect ion and content) No Status Records FoundNo Status Records Found INFORMATION SOURCE (unrecogn ized section and content) DATE CREATED AUTHOR 06/12/2023 [facility] DATE CREATED AUTHOR AUTHOR'S ORGANIZ ATJIMI 12/27/2024 [facility] Reason for Visit (unrecogniz ed section and content) Reason Comments Back Pain Pt presents to ED fo r back pain. Pt reports symptoms started a few months ago. Pt denies any injury. Pt reports diarrhea. Reason Onset Date Comments Care Coordination 09/03/2024 [facility] Search for Lung Nodule Reason Comments New Patient Lung Nodule Reason Comments New Patient Colitis Specialty Diagnoses / Procedures Referred By Contac t Referred To Contact Gastroenterology Diagnoses Colitis Procedures GA OFFICE/OUTPATIENT NEW HIGH MDM 60 MINUTES Johana Laura MD [address] [place] [address] Phone: tel: fax: [facility] [place] [address] [place] [address] Phone: tel: fax: Referral ID Status Reason Start Date Expiration Date V isits Requested Visits Authorized [id number] Closed Specialty Services Required 08/29/2024 08/29/2025 1 1 Scheduled Active and Recently Administ ered Medications (unrecognized section and content) Medication Order 08/27/2024 08/28/2024 08/29/2024 ketorolac (Toradol) injection 30 mg (COMPLETED) 30 mg, IntraVENous, Once, On Tue08/29/24 at 0915, For 1 dose 1038 (Given - Provid er: Adry Polo RN) PRN Medication Order 08/27/2024 08/28/2024 08/29/2024 iopamidol (Isovue-370) 76 % injection 75 mL (COMPLETED) 75 mL, IntraVENous, IMG once PRN, contrast, Starting on Tue08/29/24 at 1211, For 1 dose 1214 (Given - Provid er: Raven Kevin) FOR RECORDS PERTAINING TO PATIENTS WHO ARE OR HAVE BEEN ENROLLED IN A CHEMICAL DEPENDENCY/SUBSTANCEABUSE PROGRAM, SOME INFORMATION MAY BE OMITTED. This clinical summary was aggregated from multiple sources. Caution should be exercised in using it in the provision of clinical care. This summary normalizes information from multiple sources, and as a consequence, information in this document may materially change the coding, format and clinical context of patient data. In addition, data may be omitted in some cases. CLINICAL DECISIONS SHOULD BE BASED ON THE PRIMARY CLINICAL RECORDS. [facility], [facility]. provides no warranty or guarantee of the accuracy or completeness of information in this document.
[2025-03-21 10:46] VITALS: BP 126/70; PULSE 78; O2SAT 96
[2025-03-21 11:32] LABS: Troponin T High Sens 2 HR 17 ng/L (<=22)
[2025-03-21 12:00] VITALS: BP 126/77; PULSE 70; O2SAT 98
[2025-03-21 13:04] LABS: Anion Gap 13 (5-15); BUN 23 mg/dL (4-19); BUN/Creat Ratio 25.8 RATIO (10-20); Calcium,Total 8.4 mg/dL (7.6-11.0); Carbon Dioxide 18.1 mmol/L (21.0-32.0); Chloride 105 mmol/L (98-108); Estimated Creatinine Clearance 105.83 ml/min (50-250); Glucose 110 mg/dL (70-99); Potassium 4.7 mmol/L (3.3-5.1)
[2025-03-21 13:14] VITALS: BP 126/77; PULSE 70; RESP 16; TEMP 36.8; O2SAT 98
[2025-03-21 13:45] LABS: Troponin T High Sens 4 HR 13 ng/L (<=22)
== END 2025-03-21 13:19 | disposition home or self-care (01) ==
PROVIDERS: Emergency Provider Emergency Medicine; Visit Provider Emergency Medicine
DX: S39.012A Strain of muscle, fascia and tendon of lower back, initial encounter (principal); R11.2 Nausea with vomiting, unspecified; R03.0 Elevated blood-pressure reading, without diagnosis of hypertension; F12.90 Cannabis use, unspecified, uncomplicated; R06.00 Dyspnea, unspecified; M54.9 Dorsalgia, unspecified; X58.XXXA Exposure to other specified factors, initial encounter
CPT/HCPCS: 71046; 80048; 84484; 85025; 85379; 93005; 99285; A4216; J2405